=== PATIENT | female | born 1930 | race Caucasian/White ===

== ENCOUNTER 2016-03-19 08:45 | Outpatient (CLI) | payer MEDICARE | END 2016-03-19 08:46 | LOC: NAVSJIPCSP 08:45 | PROVIDERS: ATTEND Internal Medicine | DX: E78.5 Hyperlipidemia, unspecified (principal); Z79.899 Other long term (current) drug therapy | CPT/HCPCS: 36415; 80061 ==

== ENCOUNTER 2016-06-16 07:57 | Outpatient (CLI) | payer MEDICARE ==
[2016-06-16 12:59] LABS: Cardiac Risk 2.8 (Less than 4.5)
== END 2016-06-16 07:58 | disposition home or self-care (01) ==
LOC: NAVSJIPCSP 07:57
PROVIDERS: ATTEND Internal Medicine
DX: E78.5 Hyperlipidemia, unspecified (principal); Z79.899 Other long term (current) drug therapy
CPT/HCPCS: 36415; 80061

== ENCOUNTER 2016-09-24 08:44 | Outpatient (CLI) | payer MEDICARE ==
[2016-09-24 12:59] LABS: Cardiac Risk 2.9 (Less than 4.5)
== END 2016-09-24 08:45 | disposition home or self-care (01) ==
LOC: NAVSJIPCSP 08:44
PROVIDERS: ATTEND Internal Medicine
DX: E78.5 Hyperlipidemia, unspecified (principal)
CPT/HCPCS: 36415; 80061

== ENCOUNTER 2017-06-02 06:11 | Emergency (ER) | payer MEDICARE | END 2017-06-02 06:55 | disposition home or self-care (01) | LOC: NAV ERS 06:11 | DX: J06.9 Acute upper respiratory infection, unspecified (principal); I10 Essential (primary) hypertension; E78.5 Hyperlipidemia, unspecified | CPT/HCPCS: 96372 ==

== ENCOUNTER 2017-11-08 15:56 | Outpatient (CLI) | payer MEDICARE ==
--- NOTE | 2017-11-08 17:55 | RAD ---
RIGHT KNEE FOUR VIEWS: INDICATIONS: Right knee pain. FINDINGS: There is a nondisplaced stress fracture involving the lateral cortex of the distal right femoral shaf t. There is moderate degenerative arthrosis of the right knee. There is no definite joint capsular distention. IMPRESSION: 1. Nondisplaced stress fracture of the right distal lateral femoral shaft. 2. Moderated degenerative arthrosis of the right knee. CODE T POS: [facility]
== END 2017-11-08 15:57 | disposition home or self-care (01) ==
LOC: NAV RAD 15:56
PROVIDERS: ATTEND Internal Medicine
DX: M17.11 Unilateral primary osteoarthritis, right knee (principal); S72.301A Unspecified fracture of shaft of right femur, initial encounter for closed fracture

== ENCOUNTER 2018-09-09 18:41 | Emergency (ER) | payer MEDICARE ==
[~2018-09-09 18:41] MED LIST: Iopamidol 370 76% 100 ML VIAL ONE
[2018-09-09] MEDS ORDERED: Fentanyl 100 MCG/2 ML VIAL ONE ×2 (19:12→20:47)
[2018-09-09] MEDS ORDERED: Ondansetron PF 4 MG/2 ML Vial ONE (19:12)
[2018-09-09] MEDS ORDERED: Ondansetron PF 4 MG/2 ML Vial SLOW IVP SCH (19:15)
[2018-09-09] MEDS ORDERED: Fentanyl 100 MCG/2 ML VIAL SLOW IVP SCH (19:15)
[2018-09-09 19:34] LABS: #Lymphocytes 1.8 thou/uL (1.20-3.40); #Monocytes 0.9 thou/uL (0.11-0.59); %Basophils 0.3 % (0.0-1.0); %Eosinophils 0.1 % (0.0-10.0); %Lymphocytes 15.6 % (21.0-51.0); %Monocytes 7.6 % (0.0-10.0); %Neutrophils 76.4 % (42.0-75.0); Hemoglobin 12.3 g/dL (12.0-16.0); Mean Corpuscular HGB CONC 33.2 g/dL (32.0-36.0); Mean Corpuscular Hemoglobin 29.7 pg (27.0-31.0); Mean Corpuscular Volume 89.5 fL (78.0-98.0); Mean Platelet Volume 8.5 fL (7.4-10.4); Platelet Count 225 thou/uL (130-400); RBC Distribution Width 12.1 % (11.5-14.5); Red Blood Cell (RBC) Count 4.13 mill/uL (4.20-5.40); White Blood Cell (WBC) Count 11.7 thou/uL (4.8-10.8)
[2018-09-09 19:51] LABS: ALT (SGPT) 20 U/L (8-55); AST (SGOT) 26 U/L (5-34); Albumin 4.3 g/dL (3.4-4.8); Alkaline Phosphatase 61 U/L (40-150); Anion Gap 17 mmol/L (10-20); BUN (Urea Nitrogen) 19 mg/dL (9.8-20.1); Bilirubin, Total 0.9 mg/dL (0.2-1.2); CK (CPK) 79 U/L (29-168); Calc. Creatinine Clearance 0 mL/min (70-130); Calcium 10.5 mg/dL (7.8-10.44); Carbon Dioxide 24 mmol/L (23-31); Chloride 101 mmol/L (98-107); Estimated GFR-MDRD 62; Globulin 2.8 g/dL (2.4-3.5); Glucose 113 mg/dL (83-110); Lipase 18 U/L (8-78); Potassium 3.4 mmol/L (3.5-5.1); Protein, Total 7.1 g/dL (6.0-8.3); Sodium 139 mmol/L (136-145)
[2018-09-09] MEDS ORDERED: Metoprolol Tartrate 5 MG/5 ML VIAL ONE (19:59)
[2018-09-09] MEDS ORDERED: hydrALAZINE 20 MG/ML VIAL ONE (19:59)
--- NOTE | 2018-09-09 20:07 | RAD ---
Lumbar spine 3 views HISTORY: Fall. Back injury. FINDINGS: There are 5 lumbar type vertebrae. Pedicles are intact. Minimal degenerative spondylolisthe sis at the L1-2 and L5-S1 levels. Prominent osteophytosis throughout the vertebral bodies and facets. Prominent leftward convex rotatory scoliotic curvature on the frontal view. Minimal chronic appearing superior and inferior endplate depression at L2. Compression of the T11 inferior endplate by approximately 40%. No retropulsion. Prominent calcification over the arterial structures. IMPRESSION: Partial compression of the T11 vertebral body. Age indeterminant. No retropulsion. Minimal chronic appearing compression at L2. Atherosclerosis.
--- NOTE | 2018-09-09 20:12 | RAD ---
PA VIEW OF THE CHEST WITH THREE VIEWS OF THE RIGHT CHEST WALL 09/09/18 INDICATION: History of fall with right sided rib pain. FINDINGS: The lungs are hyperexpanded but clear. There is moderate cardiomegaly with a mild pulmonary vascular congestion. No consolidation, pleural effusion, or pneumothorax is evident. There is diffuse osteopen ia. There is mild degenerative arthrosis in both shoulders, left greater than right. No displaced right sided rib fracture is evident. There is scattered vascular calcifications within t he visualized abdomen. IMPRESSION: 1. No definite displaced right sided rib fracture. 2. Chronic findings as above. POS: [facility]
[2018-09-09 20:55] LABS: Bilirubin Negative (Negative); Blood, Urine Negative (Negative); Clarity Clear (Clear); Glucose, Urine (Dipstick) Negative (Negative); Leukocyte Trace (Negative); Nitrite Negative (Negative); Protein, Urine (Dipstick) > or equal to 300 mg/dL (Neg-Trace)
[2018-09-09 20:58] LABS: Bacteria/HPF Rare-Few HPF (None Seen); RBC/HPF None Seen HPF (0-3); Squamous Epithelial 0-3 HPF (0-3)
--- NOTE | 2018-09-09 21:40 | CT ---
CT abdomen and pelvis with IV contrast HISTORY: Abdomen pain. FINDINGS: Mild atelectasis and scarring at the lung bases. Prominent leftward convex rotatory scoliot ic curvature of the lumbar spine. Prominent calcification throughout the arterial structures. Cysts arise from the cortex of the kidney. Largest projects medially from the inferior pole of the left kid lorena and measures up to 8.4 cm. No evidence of bowel obstruction. Diverticula arise from the colon without adjacent inflammation. Urinary bladder is incompletely distended. Extensive dystrophic inject ion granulomata throughout the gluteal tissues. IMPRESSION: Atherosclerosis. Chronic-type findings as detailed above. No acute abnormalities are demonstrated.
[2018-09-09] MEDS ORDERED: cefTRIAXone\\ROCEPHIN 1 GM VIAL ONE (22:24)
== END 2018-09-09 22:42 | disposition short-term general hospital (02) ==
LOC: NAV ERS 18:41
DX: S23.41XA Sprain of ribs, initial encounter (principal); N39.0 Urinary tract infection, site not specified; I10 Essential (primary) hypertension; E78.5 Hyperlipidemia, unspecified; Z79.899 Other long term (current) drug therapy; W18.2XXA Fall in (into) shower or empty bathtub, initial encounter
CPT/HCPCS: 72100; 74177; 80053; 81003; 81015; 82550; 83690; 84484; 85025; 93005; 94760; 96374; 96375; 96376; J0360; J0696; J2405; J3010; Q9967

== ENCOUNTER 2018-09-19 15:27 | Inpatient (IN) | payer MEDICARE ==
[2018-09-19] MEDS: Acetaminophen 325 MG TAB PO SCH ×2 (21:15→21:19)
[2018-09-19] MEDS: Montelukast Sodium 10 mg Tablet PO SCH (21:15)
[2018-09-19] MEDS: Gabapentin 300 MG CAP PO SCH (21:16)
[2018-09-19] MEDS: HYDROcodone/Acetaminophen 5/325 mg Tablet PO PRN (21:16)
[2018-09-19] MEDS: Apixaban 2.5 MG TAB PO SCH (21:17)
[2018-09-19] MEDS: Digoxin 0.125 MG TAB PO SCH (21:18)
[2018-09-19] MEDS ORDERED: cloNIDine 0.1 MG TAB PO SCH (23:59)
[2018-09-20 05:59] LABS: #Basophils 0.1 thou/uL (0.0-0.2); #Eosinphils 0.4 thou/uL (0.0-0.7); #Lymphocytes 2.4 thou/uL (1.20-3.40); #Monocytes 0.9 thou/uL (0.11-0.59); #Neutrophils 5.8 thou/uL (1.40-6.50); %Basophils 1.2 % (0.0-1.0); %Eosinophils 4.3 % (0.0-10.0); %Monocytes 9.1 % (0.0-10.0); %Neutrophils 60.4 % (42.0-75.0); Hemoglobin 10.9 g/dL (12.0-16.0); Mean Corpuscular HGB CONC 32.1 g/dL (32.0-36.0); Mean Corpuscular Hemoglobin 29.4 pg (27.0-31.0); Mean Corpuscular Volume 91.7 fL (78.0-98.0); Mean Platelet Volume 7.7 fL (7.4-10.4); Platelet Count 309 thou/uL (130-400); RBC Distribution Width 12.7 % (11.5-14.5); Red Blood Cell (RBC) Count 3.71 mill/uL (4.20-5.40); White Blood Cell (WBC) Count 9.5 thou/uL (4.8-10.8)
[2018-09-20 06:10] LABS: Anion Gap 13 mmol/L (10-20); BUN (Urea Nitrogen) 19 mg/dL (9.8-20.1); Calc. Creatinine Clearance 46 mL/min (70-130); Calcium 9.8 mg/dL (7.8-10.44); Carbon Dioxide 28 mmol/L (23-31); Chloride 103 mmol/L (98-107); Estimated GFR-MDRD 73; Glucose 94 mg/dL (83-110); Potassium 3.8 mmol/L (3.5-5.1); Sodium 140 mmol/L (136-145)
[2018-09-20] MEDS: hydrALAZINE 25 MG TAB PO SCH ×2 (08:07→20:09)
[2018-09-20] MEDS: Saccharomyces boulardii 250 MG CAP PO SCH (08:08)
[2018-09-20] MEDS: Multivitamin W/ Minerals 1 TAB PO SCH (08:08)
[2018-09-20] MEDS: Losartan 25 MG TAB PO SCH (08:08)
[2018-09-20] MEDS: cloNIDine 0.1 MG TAB PO SCH ×3 (08:09→20:08)
[2018-09-20] MEDS: Gabapentin 300 MG CAP PO SCH ×3 (08:09→20:08)
[2018-09-20] MEDS: Atorvastatin Calcium 40 MG TAB PO SCH (08:10)
[2018-09-20] MEDS: Amlodipine 10 MG TAB PO SCH (08:10)
[2018-09-20] MEDS: Apixaban 2.5 MG TAB PO SCH ×2 (08:10→20:07)
[2018-09-20] MEDS: HYDROcodone/Acetaminophen 5/325 mg Tablet PO PRN ×2 (08:17→14:03)
[2018-09-20] MEDS: Acetaminophen 325 MG TAB PO SCH ×3 (08:18→20:07)
[2018-09-20] MEDS: Polyethylene Glycol 3350 17 GM Packet PO SCH (08:18)
--- NOTE | 2018-09-20 14:38 | HP ---
PRINCIPAL DIAGNOSES: Mesenteric ischemia and severe renal artery stenosis along with deconditioning requiring therapy. BRIEF HISTORY: This is a very pleasant 87-year-old female, who is well known to me, developed acute abdominal pain, requiring morphine and Dilaudid, so she was transferred up to [place], where workup showed a mesenteric ischemia, and CT angiogram showed some stenosis in the superior mesenteric artery, which is [id number], as well as minimal celiac artery narrowing as well. She was also noted to have bilateral severe renal artery stenosis as well as a T11 compression fracture. She was switched from heparin infusion to Eliquis. She has been advised to wear a TLSO brace. She was not recommended any intervention for her mesenteric artery stenosis. Her diet has been slowly advanced, and she was advised to come here for therapy. Currently, the patient is sitting up in her wheelchair and denies any concerns. She is still on oxygen. She apparently walked all the way around the nurse's station this morning. The pain is controlled. No fever or chills. No family at bedside. PAST MEDICAL HISTORY: 1. Hypertension. 2. Dyslipidemia. 3. Atrial fibrillation, has always refused anticoagulation, but currently has agreed to it. 4. Chronic kidney disease, stage 2. 5. Osteoarthritis. 6. Recent T11 compression fracture. 7. 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 PAST SURGICAL HISTORY: 1. Appendectomy. 2. Hysterectomy. FAMILY HISTORY: Noncontributory. PSYCHOSOCIAL HISTORY: No alcohol, tobacco, or recreational drug abuse. Fairly active and independent and gainfully employed. ALLERGIES: NO KNOWN DRUG ALLERGIES. MEDICATIONS: Discharge medications, she has been transferred here on the following medications: 1. Eliquis 2.5 mg b.i.d. 2. Vitamin D3 1000 international units at bedtime. 3. Clonidine 0.1 mg t.i.d. 4. Digoxin 250 mcg daily. 5. Hydralazine 50 mg b.i.d. 6. Losartan 100 mg daily. 7. Singulair 10 mg daily. 8. Simvastatin 80 mg at bedtime. 9. Amlodipine 10 mg daily. 10. Gabapentin 300 mg t.i.d. 11. [place] 5/325 q.6 p.r.n. 12. Potassium chloride 20 mEq daily for 5 more days. 13. Florastor 250 mg daily. REVIEW OF SYSTEMS: CARDIOVASCULAR SYSTEM: Denies any chest pain, shortness of breath, palpitations, PND, orthopnea, or pedal edema. RESPIRATORY SYSTEM: Denies any chronic cough, expectoration, or pleuritic type chest pain. GASTROINTESTINAL SYSTEM: Denies any nausea, vomiting, diarrhea, constipation, hematemesis, melena, or hematochezia. Her abdominal pain is much improved. GENITOURINARY SYSTEM: Denies any frequency, urgency, dysuria, or hematuria. CENTRAL NERVOUS SYSTEM: Generalized weakness. SHEENT: No difficulty with speech, vision, hearing, or swallowing. SKIN: Denies any rash. PHYSICAL EXAMINATION: GENERAL: A very pleasant 87-year-old female, who is well known to me, who is resting comfortably in her wheelchair and denies any concerns. No family at bedside. She responds appropriately to questions. VITAL SIGNS: She is afebrile. Heart rate 71, respirations 20, oxygen saturation 95% on 2 L, and blood pressure 180/77. HEENT: Normocephalic and atraumatic. Pupils equally reactive to light and accommodation. NECK: No JVD, thyromegaly, cervical lymphadenopathy, or throat exudates. No carotid bruits. CARDIOVASCULAR SYSTEM: S1 and S2 plus. Irregularly irregular. RESPIRATORY: Normal vesicular breath sounds heard in all lung bruno. ABDOMEN: Soft and nontender. Bowel sounds heard in all quadrants. No organomegaly. No palpable mass. No CV angle tenderness. EXTREMITIES: Without cyanosis or clubbing. Peripheral pulses are palpable. Trace edema. CENTRAL NERVOUS SYSTEM: Awake. AAO x3. Cranial nerves 2 through 12 intact. Generalized weakness. LABORATORY VALUES: Show a white count of 9.5, H and H are 10.9 and 34. Sodium 140, potassium 3.8, BUN and creatinine are 19 and 0.75. IMPRESSION: 1. Mesenteric ischemia. 2. Bilateral renal artery stenosis. 3. Atrial fibrillation. 4. Hypertension. 5. Dyslipidemia. 6. Osteoarthritis. 7. Resolving hypokalemia. 8. Acute respiratory failure with hypoxemia. PLAN: 1. Titrate oxygen as long as room air saturation greater than 92%. 2. Continue discharge medications. 3. Stop potassium supplement. 4. Physical therapy and occupational therapy evaluation and treat. 5. TLSO brace and spinal precaution. 6. Heart healthy diet. 7. DVT prophylaxis - the patient is on Eliquis. 8. Stress ulcer prophylaxis. 9. Decubitus precautions. 10. Discussed with the patient in detail. All questions answered. Job ID: [id number]
[2018-09-20] MEDS: Digoxin 0.125 MG TAB PO SCH (20:08)
[2018-09-20] MEDS: Montelukast Sodium 10 mg Tablet PO SCH (20:09)
[2018-09-21] MEDS: Polyethylene Glycol 3350 17 GM Packet PO SCH (08:19)
[2018-09-21] MEDS: hydrALAZINE 25 MG TAB PO SCH ×2 (08:19→20:39)
[2018-09-21] MEDS: Saccharomyces boulardii 250 MG CAP PO SCH (08:19)
[2018-09-21] MEDS: cloNIDine 0.1 MG TAB PO SCH ×3 (08:20→20:40)
[2018-09-21] MEDS: Amlodipine 10 MG TAB PO SCH (08:20)
[2018-09-21] MEDS: Gabapentin 300 MG CAP PO SCH ×3 (08:20→20:39)
[2018-09-21] MEDS: Multivitamin W/ Minerals 1 TAB PO SCH (08:20)
[2018-09-21] MEDS: HYDROcodone/Acetaminophen 5/325 mg Tablet PO PRN ×2 (08:21→13:54)
[2018-09-21] MEDS: Acetaminophen 325 MG TAB PO SCH ×3 (08:21→20:39)
[2018-09-21] MEDS: Apixaban 2.5 MG TAB PO SCH ×2 (08:21→20:40)
[2018-09-21] MEDS: Atorvastatin Calcium 40 MG TAB PO SCH (08:25)
[2018-09-21] MEDS: Losartan 25 MG TAB PO SCH (08:27)
--- NOTE | 2018-09-21 12:38 | PRG ---
DATE OF SERVICE: 09/21/2018 SUBJECTIVE: Ms. Cabrera is doing well. She is up in her chair and drinking her Ensure. She apparently walked twice around the nurse's station this morning. She is still on oxygen. Discussed with nursing and I advised them to try to titrate her off the oxygen. Main concern for her is how she is going to get her TLSO brace off and on at home, and I am going to talk with her family members and see if they can be trained. OBJECTIVE: VITAL SIGNS: She is afebrile. Heart rate is 68, respirations 18, and blood pressure 148/68 after blood pressure medicines. CARDIOVASCULAR SYSTEM: S1 and S2 plus irregularly irregular. RESPIRATORY SYSTEM: Normal vesicular breath sounds. ABDOMEN: Soft, nontender. Bowel sounds heard in all quadrants. EXTREMITIES: Without cyanosis or clubbing. CENTRAL NERVOUS SYSTEM: Generalized weakness. AAO x3. IMPRESSION: 1. T11 compression fracture. 2. Atrial fibrillation, now on anticoagulation. 3. Mesenteric ischemia. 4. Bilateral renal artery stenosis. 5. Hypertension. 6. Osteoarthritis. 7. Dyslipidemia. PLAN: 1. Continue current medications. 2. Nutritional support. 3. Titrate oxygen. 4. DVT and stress ulcer prophylaxes. She is started on Eliquis. 5. Decubitus precautions. 6. Spinal precaution. 7. Physical therapy. 8. Discussed with family about her brace, placing it on and off. Job ID: [id number]
[2018-09-21] MEDS: Digoxin 0.125 MG TAB PO SCH (20:40)
[2018-09-21] MEDS: Montelukast Sodium 10 mg Tablet PO SCH (20:40)
[2018-09-22] MEDS: HYDROcodone/Acetaminophen 5/325 mg Tablet PO PRN ×3 (05:47→21:39)
[2018-09-22] MEDS: Polyethylene Glycol 3350 17 GM Packet PO SCH (08:26)
[2018-09-22] MEDS: Multivitamin W/ Minerals 1 TAB PO SCH (08:27)
[2018-09-22] MEDS: Amlodipine 10 MG TAB PO SCH (08:27)
[2018-09-22] MEDS: Saccharomyces boulardii 250 MG CAP PO SCH (08:27)
[2018-09-22] MEDS: Atorvastatin Calcium 40 MG TAB PO SCH (08:27)
[2018-09-22] MEDS: Gabapentin 300 MG CAP PO SCH ×3 (08:27→21:41)
[2018-09-22] MEDS: cloNIDine 0.1 MG TAB PO SCH ×3 (08:28→21:38)
[2018-09-22] MEDS: Acetaminophen 325 MG TAB PO SCH ×3 (08:28→21:40)
[2018-09-22] MEDS: Losartan 25 MG TAB PO SCH (08:28)
[2018-09-22] MEDS: hydrALAZINE 25 MG TAB PO SCH ×3 (08:28→21:39)
[2018-09-22] MEDS: Apixaban 2.5 MG TAB PO SCH ×2 (08:28→21:38)
--- NOTE | 2018-09-22 14:07 | PRG ---
DATE OF SERVICE: 09/22/2018 SUBJECTIVE: Ms. Cabrera has been moved to 143. She is resting comfortably. Apparently, nursing was unable to discontinue her oxygen as her saturation dropping to 88 on room air. Reinforced complaints with incentive spirometry. The patient is doing well, otherwise is very happy. She got some falk for breakfast. Pain is controlled. OBJECTIVE: VITAL SIGNS: She is afebrile. Heart rate 63, respirations 18, oxygen saturation 93% on 0.5 L, and blood pressure 177/70. CARDIOVASCULAR SYSTEM: S1 and S2 plus. RESPIRATORY SYSTEM: Normal vesicular breath sounds. ABDOMEN: Soft, nontender. Bowel sounds heard in all quadrants. EXTREMITIES: Without cyanosis or clubbing. CENTRAL NERVOUS SYSTEM: Awake and responsive. Cranial nerves 2 through 12 intact. Generalized weakness. IMPRESSION: 1. T11 compression fracture. 2. Mesenteric artery ischemia. 3. Bilaterally renal artery stenosis. 4. Atrial fibrillation. 5. Hypertension. 6. Dyslipidemia. 7. Osteoarthritis. PLAN: 1. Continue current medications. 2. Nutritional support. 3. DVT and stress ulcer prophylaxis. 4. Decubitus precautions. 5. TLSO brace. 6. Routine laboratory values. 7. Physical therapy. 8. Increase hydralazine to 100 mg t.i.d. 9. Discussed with the patient and nursing in detail, and all questions answered. Job ID: [id number]
[2018-09-22] MEDS: Montelukast Sodium 10 mg Tablet PO SCH (21:39)
[2018-09-22] MEDS: Digoxin 0.125 MG TAB PO SCH (21:41)
[2018-09-23] MEDS: HYDROcodone/Acetaminophen 5/325 mg Tablet PO PRN ×4 (05:31→20:16)
[2018-09-23] MEDS: Gabapentin 300 MG CAP PO SCH ×3 (09:24→20:15)
[2018-09-23] MEDS: hydrALAZINE 25 MG TAB PO SCH ×3 (09:25→20:16)
[2018-09-23] MEDS: Losartan 25 MG TAB PO SCH (09:25)
[2018-09-23] MEDS: Apixaban 2.5 MG TAB PO SCH ×2 (09:26→20:14)
[2018-09-23] MEDS: Amlodipine 10 MG TAB PO SCH (09:26)
[2018-09-23] MEDS: cloNIDine 0.1 MG TAB PO SCH ×3 (09:26→20:14)
[2018-09-23] MEDS: Multivitamin W/ Minerals 1 TAB PO SCH (09:26)
[2018-09-23] MEDS: Saccharomyces boulardii 250 MG CAP PO SCH (09:26)
[2018-09-23] MEDS: Acetaminophen 325 MG TAB PO SCH ×3 (09:26→20:14)
[2018-09-23] MEDS: Atorvastatin Calcium 40 MG TAB PO SCH (09:26)
[2018-09-23] MEDS: Polyethylene Glycol 3350 17 GM Packet PO SCH (09:27)
[2018-09-23] MEDS ORDERED: Lidocaine 5% Patch TD SCH (10:00)
--- NOTE | 2018-09-23 10:14 | PRG ---
DATE OF SERVICE: 09/23/2018 SUBJECTIVE: Ms. Cabrera is up in bed, eating breakfast. She is complaining of pain in her back. She states it is worse over time she coughs. Plan is to try a Lidoderm patch. Discussed with nursing. No other concerns or questions. OBJECTIVE: VITAL SIGNS: She is afebrile, heart rate is 65, respirations are 18, oxygen saturation 92% on 1.5 L, and blood pressure 124/58. CARDIOVASCULAR SYSTEM: S1 and S2 plus. Irregularly regular. RESPIRATORY SYSTEM: Normal vesicular breath sounds with decreased air entry at the bases. ABDOMEN: Soft, nontender. Bowel sounds heard in all quadrants. EXTREMITIES: Without cyanosis or clubbing. CENTRAL NERVOUS SYSTEM: Awake and responsive. Cranial nerves 2 through 12 intact. Generalized weakness. IMPRESSION: 1. Mesenteric ischemia, much improved and now asymptomatic. 2. T11 compression fracture causing significant pain. 3. Hypertension, better controlled. 4. Dyslipidemia. 5. Atrial fibrillation. 6. Renal artery stenosis as well as mesenteric artery stenosis. 7. Deconditioning. PLAN: 1. Lidoderm patch q.12 hours. 2. Spinal precautions and TLSO brace. 3. Continue current medications. 4. Heart healthy diet. 5. Monitor heart rate and rhythm. 6. Reinforce complaints with incentive spirometry. 7. Monitor respiratory status. 8. Routine laboratory values. 9. Physical therapy. 10. Discussed with the patient and nursing in detail. All questions answered. Job ID: [id number]
[2018-09-23] MEDS: Digoxin 0.125 MG TAB PO SCH (20:15)
[2018-09-23] MEDS: Lidocaine Patch Removal 1 EACH TOP SCH (20:16)
[2018-09-23] MEDS: Montelukast Sodium 10 mg Tablet PO SCH (20:16)
[2018-09-24] MEDS: HYDROcodone/Acetaminophen 5/325 mg Tablet PO PRN ×3 (04:08→21:17)
[2018-09-24 05:44] LABS: #Basophils 0.1 thou/uL (0.0-0.2); #Eosinphils 0.4 thou/uL (0.0-0.7); #Lymphocytes 2.3 thou/uL (1.20-3.40); #Monocytes 0.8 thou/uL (0.11-0.59); #Neutrophils 5.9 thou/uL (1.40-6.50); %Basophils 1.1 % (0.0-1.0); %Eosinophils 4.1 % (0.0-10.0); %Lymphocytes 24.2 % (21.0-51.0); %Monocytes 7.9 % (0.0-10.0); %Neutrophils 62.6 % (42.0-75.0); Hemoglobin 10.2 g/dL (12.0-16.0); Mean Corpuscular HGB CONC 31.5 g/dL (32.0-36.0); Mean Corpuscular Hemoglobin 29.1 pg (27.0-31.0); Mean Corpuscular Volume 92.4 fL (78.0-98.0); Mean Platelet Volume 7.6 fL (7.4-10.4); Platelet Count 345 thou/uL (130-400); RBC Distribution Width 12.7 % (11.5-14.5); Red Blood Cell (RBC) Count 3.51 mill/uL (4.20-5.40); White Blood Cell (WBC) Count 9.4 thou/uL (4.8-10.8)
[2018-09-24 05:58] LABS: Anion Gap 13 mmol/L (10-20); BUN (Urea Nitrogen) 31 mg/dL (9.8-20.1); Calc. Creatinine Clearance 39 mL/min (70-130); Calcium 10.1 mg/dL (7.8-10.44); Carbon Dioxide 28 mmol/L (23-31); Chloride 104 mmol/L (98-107); Estimated GFR-MDRD 59; Glucose 92 mg/dL (83-110); Potassium 4.4 mmol/L (3.5-5.1); Sodium 141 mmol/L (136-145)
[2018-09-24] MEDS ORDERED: Lidocaine 5% Patch TD SCH (09:00)
[2018-09-24] MEDS: Multivitamin W/ Minerals 1 TAB PO SCH (09:59)
[2018-09-24] MEDS: Losartan 25 MG TAB PO SCH (09:59)
[2018-09-24] MEDS: Atorvastatin Calcium 40 MG TAB PO SCH (09:59)
[2018-09-24] MEDS: Polyethylene Glycol 3350 17 GM Packet PO SCH (09:59)
[2018-09-24] MEDS: Saccharomyces boulardii 250 MG CAP PO SCH (09:59)
[2018-09-24] MEDS: Gabapentin 300 MG CAP PO SCH ×3 (09:59→21:18)
[2018-09-24] MEDS: cloNIDine 0.1 MG TAB PO SCH ×3 (09:59→21:18)
[2018-09-24] MEDS: Apixaban 2.5 MG TAB PO SCH ×2 (09:59→21:20)
[2018-09-24] MEDS: Amlodipine 10 MG TAB PO SCH (09:59)
[2018-09-24] MEDS: hydrALAZINE 25 MG TAB PO SCH ×3 (09:59→21:16)
[2018-09-24] MEDS: Acetaminophen 325 MG TAB PO SCH ×3 (10:00→21:20)
--- NOTE | 2018-09-24 16:15 | PRG ---
DATE OF SERVICE: 09/24/2018 SUBJECTIVE: Ms. Cabrera is doing well. Denies any complaints except for pain. Lidoderm patch is helping, but she is noticing the pain below that. I advised nursing to add two patches daily. She is staying compliant with her incentive spirometry. Tolerating her p.o. intake. No further abdominal pain. OBJECTIVE: VITAL SIGNS: She is afebrile. Heart rate 69, respirations 18, oxygen saturation 95%, blood pressure 144/64. CARDIOVASCULAR SYSTEM: S1 and S2 plus. RESPIRATORY SYSTEM: Normal vesicular breath sounds. ABDOMEN: Soft, nontender. Bowel sounds heard in all quadrants. EXTREMITIES: Without cyanosis or clubbing. Peripheral pulses are palpable. CENTRAL NERVOUS SYSTEM: A and O x3. Cranial nerves 2 through 12 are intact. Generalized weakness. LABORATORY VALUES: Show white count of 9.4, hemoglobin and hematocrit are 10.2 and 32.4. Sodium 141, potassium 4.4, BUN and creatinine are 31 and 0.90. IMPRESSION: 1. T11 compression fracture. 2. Mesenteric ischemia. 3. Hypertension. 4. Atrial fibrillation. 5. Osteoarthritis. 6. Dyslipidemia. 7. Acute hypoxemic respiratory failure. PLAN: 1. Continue current medications. 2. Heart healthy diet. 3. Monitor blood pressure and adjust medications as needed. 4. Titrate oxygen. 5. DVT and stress ulcer prophylaxis. She is on Eliquis. 6. Decubitus precaution. 7. Incentive spirometry. 8. Discussed with the patient in detail. All questions answered. Job ID: [id number]
[2018-09-24] MEDS ORDERED: Lidocaine Patch Removal 1 EACH TOP SCH (21:00)
[2018-09-24] MEDS: Digoxin 0.125 MG TAB PO SCH (21:18)
[2018-09-24] MEDS: Montelukast Sodium 10 mg Tablet PO SCH (21:21)
[2018-09-24] MEDS: Lidocaine Patch Removal 1 EACH TOP SCH (21:22)
[2018-09-25] MEDS: Saccharomyces boulardii 250 MG CAP PO SCH (09:12)
[2018-09-25] MEDS: Acetaminophen 325 MG TAB PO SCH ×3 (09:12→21:45)
[2018-09-25] MEDS: Lidocaine 5% Patch TD SCH (09:12)
[2018-09-25] MEDS: Multivitamin W/ Minerals 1 TAB PO SCH (09:12)
[2018-09-25] MEDS: Losartan 25 MG TAB PO SCH (09:12)
[2018-09-25] MEDS: Atorvastatin Calcium 40 MG TAB PO SCH (09:12)
[2018-09-25] MEDS: hydrALAZINE 25 MG TAB PO SCH ×3 (09:13→20:42)
[2018-09-25] MEDS: cloNIDine 0.1 MG TAB PO SCH ×3 (09:13→20:42)
[2018-09-25] MEDS: Gabapentin 300 MG CAP PO SCH ×3 (09:13→20:42)
[2018-09-25] MEDS: Apixaban 2.5 MG TAB PO SCH ×2 (09:13→20:42)
[2018-09-25] MEDS: Amlodipine 10 MG TAB PO SCH (09:13)
[2018-09-25] MEDS: Polyethylene Glycol 3350 17 GM Packet PO SCH (09:13)
[2018-09-25] MEDS: HYDROcodone/Acetaminophen 5/325 mg Tablet PO PRN ×2 (11:02→20:43)
--- NOTE | 2018-09-25 16:11 | PRG ---
DATE OF SERVICE: 09/25/2018 SUBJECTIVE: Ms. Cabrera is doing well. She states that the second Lidoderm patch is helping. She states that she does not like her multivitamin and wants it discontinued or changed. Unfortunately, pharmacy does not have any other type of multivitamin, so we will go out and stop it. She is doing well otherwise and denies any questions or concerns. OBJECTIVE: VITAL SIGNS: She is afebrile, heart rate is 65, respirations 18, blood pressure 144/64, and oxygen saturation is 94% on 1 L. CARDIOVASCULAR SYSTEM: S1 and S2 plus. RESPIRATORY SYSTEM: Normal vesicular breath sounds. ABDOMEN: Soft and nontender. Bowel sounds heard in all quadrants. EXTREMITIES: Without cyanosis or clubbing. CENTRAL NERVOUS SYSTEM: Awake and responsive. Generalized weakness. IMPRESSION: 1. T11 compression fracture. 2. Resolved mesenteric ischemia. 3. Severe mesenteric artery stenosis as well as bilateral renal artery stenosis. 4. Hypertension. 5. Dyslipidemia. 6. Osteoarthritis. PLAN: 1. Discontinue multivitamin. 2. Continue current medications. 3. Spinal precautions. 4. Monitor heart rate and rhythm. 5. Heart-healthy diet. 6. Physical therapy. 7. Routine laboratory values. 8. Discussed with the patient and nursing in detail. All questions answered. Job ID: [id number]
[2018-09-25] MEDS: Digoxin 0.125 MG TAB PO SCH (20:42)
[2018-09-25] MEDS: Montelukast Sodium 10 mg Tablet PO SCH (21:45)
[2018-09-25] MEDS: Lidocaine Patch Removal 1 EACH TOP SCH (21:45)
[2018-09-26] MEDS: HYDROcodone/Acetaminophen 5/325 mg Tablet PO PRN ×3 (07:24→20:30)
[2018-09-26] MEDS: Polyethylene Glycol 3350 17 GM Packet PO SCH (09:09)
[2018-09-26] MEDS: Saccharomyces boulardii 250 MG CAP PO SCH (09:10)
[2018-09-26] MEDS: Atorvastatin Calcium 40 MG TAB PO SCH (09:10)
[2018-09-26] MEDS: Gabapentin 300 MG CAP PO SCH ×3 (09:12→20:28)
[2018-09-26] MEDS: Amlodipine 10 MG TAB PO SCH (09:14)
[2018-09-26] MEDS: Apixaban 2.5 MG TAB PO SCH ×2 (09:16→20:29)
[2018-09-26] MEDS: cloNIDine 0.1 MG TAB PO SCH ×3 (09:16→20:28)
[2018-09-26] MEDS: Losartan 25 MG TAB PO SCH (09:17)
[2018-09-26] MEDS: Acetaminophen 325 MG TAB PO SCH ×3 (09:19→20:30)
[2018-09-26] MEDS: Lidocaine 5% Patch TD SCH ×3 (09:22→09:43)
[2018-09-26] MEDS: hydrALAZINE 25 MG TAB PO SCH ×3 (11:09→20:28)
--- NOTE | 2018-09-26 18:25 | PRG ---
DATE OF SERVICE: 09/26/2018 SUBJECTIVE: Ms. Cabrera is resting in bed. She just finished her lunch. Her sister is in the room. Her pain is improved with 2 patches. She still has pain with movement. No other concerns or questions. She is doing better since her multivitamin was stopped. She is not having any . OBJECTIVE: VITAL SIGNS: She is afebrile, heart rate 65, respirations 18, oxygen saturation 95%, and blood pressure 134/66. CARDIOVASCULAR SYSTEM: S1 and S2 plus. RESPIRATORY SYSTEM: Normal vesicular breath sounds. ABDOMEN: Soft, nontender. Bowel sounds heard in all quadrants. EXTREMITIES: Without cyanosis or clubbing. CENTRAL NERVOUS SYSTEM: Awake and responsive. Cranial nerves 2 through 12 intact. Generalized weakness. IMPRESSION: 1. T11 compression fracture. 2. Mesenteric ischemia, much improved. 3. 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 4. Atrial fibrillation. 5. Hypertension. 6. Dyslipidemia. 7. Osteoarthritis. 8. Anemia likely due to chronic disease. 9. Acute hypoxemic respiratory failure. PLAN: 1. Continue current medications. 2. Heart healthy diet. 3. Spinal precautions and TLSO brace. 4. Monitor heart rate and rhythm. 5. Physical therapy. 6. Titrate oxygen. 7. Routine laboratory values. 8. Discussed with the patient and sister in detail. All questions answered. Job ID: [id number]
[2018-09-26] MEDS: Montelukast Sodium 10 mg Tablet PO SCH (20:28)
[2018-09-26] MEDS: Digoxin 0.125 MG TAB PO SCH (20:28)
[2018-09-26] MEDS: Lidocaine Patch Removal 1 EACH TOP SCH (23:31)
[2018-09-27] MEDS: HYDROcodone/Acetaminophen 5/325 mg Tablet PO PRN ×3 (08:52→21:38)
[2018-09-27] MEDS: Atorvastatin Calcium 40 MG TAB PO SCH (08:54)
[2018-09-27] MEDS: Apixaban 2.5 MG TAB PO SCH ×2 (08:55→21:40)
[2018-09-27] MEDS: hydrALAZINE 25 MG TAB PO SCH ×3 (08:55→21:40)
[2018-09-27] MEDS: Gabapentin 300 MG CAP PO SCH ×3 (08:55→21:40)
[2018-09-27] MEDS: cloNIDine 0.1 MG TAB PO SCH ×3 (08:56→21:39)
[2018-09-27] MEDS: Amlodipine 10 MG TAB PO SCH (08:57)
[2018-09-27] MEDS: Saccharomyces boulardii 250 MG CAP PO SCH (08:57)
[2018-09-27] MEDS: Lidocaine 5% Patch TD SCH (09:07)
[2018-09-27] MEDS: Polyethylene Glycol 3350 17 GM Packet PO SCH (09:08)
[2018-09-27] MEDS: Acetaminophen 325 MG TAB PO SCH ×3 (09:09→21:40)
[2018-09-27] MEDS: Losartan 25 MG TAB PO SCH (09:11)
--- NOTE | 2018-09-27 13:53 | PRG ---
DATE OF SERVICE: 09/27/2018 SUBJECTIVE: Ms. Cabrera is up in chair and just finished her lunch. Her pain is better controlled. Denies any complaints or questions. OBJECTIVE: VITAL SIGNS: She is afebrile. Heart rate is 74, respirations 20, oxygen saturation 93% on room air, and blood pressure 141/63. CARDIOVASCULAR SYSTEM: S1 and S2 plus. RESPIRATORY SYSTEM: Normal vesicular breath sounds. ABDOMEN: Soft and nontender. Bowel sounds heard in all quadrants. EXTREMITIES: Without cyanosis or clubbing. CENTRAL NERVOUS SYSTEM: Awake and responsive. Cranial nerves 2 through 12 intact. Generalized weakness. IMPRESSION: 1. Mesenteric artery ischemia, much improved. 2. Severe mesenteric artery stenosis as well as bilateral renal artery stenosis. 3. Atrial fibrillation. 4. Hypertension, better controlled. 5. Dyslipidemia. 6. Osteoarthritis. 7. T11 compression fracture. 8. Acute hypoxemic respiratory failure. PLAN: 1. Continue to titrate oxygen as tolerated. 2. Heart healthy diet. 3. Spinal precautions. 4. DVT and stress ulcer prophylaxis. 5. Decubitus precautions. 6. Routine laboratory values. 7. Continue physical therapy. 8. Discharge planning. Job ID: [id number]
[2018-09-27] MEDS: Digoxin 0.125 MG TAB PO SCH (21:39)
[2018-09-27] MEDS: Montelukast Sodium 10 mg Tablet PO SCH (21:39)
[2018-09-27] MEDS: Lidocaine Patch Removal 1 EACH TOP SCH (21:40)
[2018-09-28] MEDS: Lidocaine 5% Patch TD SCH (05:33)
[2018-09-28] MEDS: hydrALAZINE 25 MG TAB PO SCH ×3 (08:38→20:31)
[2018-09-28] MEDS: Atorvastatin Calcium 40 MG TAB PO SCH (08:38)
[2018-09-28] MEDS: Acetaminophen 325 MG TAB PO SCH ×3 (08:38→20:32)
[2018-09-28] MEDS: Saccharomyces boulardii 250 MG CAP PO SCH (08:38)
[2018-09-28] MEDS: Amlodipine 10 MG TAB PO SCH (08:39)
[2018-09-28] MEDS: Gabapentin 300 MG CAP PO SCH ×3 (08:40→20:31)
[2018-09-28] MEDS: cloNIDine 0.1 MG TAB PO SCH ×3 (08:40→20:31)
[2018-09-28] MEDS: Losartan 25 MG TAB PO SCH (08:40)
[2018-09-28] MEDS: Apixaban 2.5 MG TAB PO SCH ×2 (08:40→20:31)
[2018-09-28] MEDS: HYDROcodone/Acetaminophen 5/325 mg Tablet PO PRN ×2 (08:41→20:30)
[2018-09-28] MEDS: Polyethylene Glycol 3350 17 GM Packet PO SCH (08:46)
--- NOTE | 2018-09-28 14:39 | PRG ---
DATE OF SERVICE: 09/28/2018 SUBJECTIVE: Ms. Cabrera is doing well, denies any complaints, but spoke with Speech Therapy, and Speech Therapy states that her swallowing is not safe enough for her to be on thin liquids. She recommended thickeners, but the patient refused. She also recommended modified barium swallow, which the patient refused. I spoke with the patient as well and she states that even if she does the modified barium swallow and they recommend a change in her diet, she is not going to follow it and so there is really no point in doing the test in the first place. The patient is aware of the risks or aspiration. OBJECTIVE: VITAL SIGNS: She is afebrile. Heart rate is 74, respirations 24, oxygen saturation is 92%, blood pressure is 151/67. CARDIOVASCULAR: S1, S2 plus. RESPIRATORY: Normal vesicular breath sounds. ABDOMEN: Soft and nontender. Bowel sounds heard in all quadrants. EXTREMITIES: Without cyanosis or clubbing. Peripheral pulses are palpable. CENTRAL NERVOUS SYSTEM: Awake and responsive. Cranial nerves 2 through 12 intact. Generalized weakness. IMPRESSION: 1. Mesenteric artery ischemia, much improved. 2. Severe mesenteric artery and bilateral renal artery stenosis. 3. T11 compression fracture. 4. Hypertension. 5. Dyslipidemia. 6. Atrial fibrillation. 7. Osteoporosis. 8. Dysphagia. PLAN: 1. Continue current medications. 2. The patient refuses any change in her diet or food consistency. She is aware of the risks. 3. Continue TLSO brace. 4. Heart-healthy diet. 5. Physical therapy. 6. Nutritional support. 7. Monitor heart rate and rhythm. 8. Routine laboratory values. 9. Discussed with the patient and her [id number] in detail and all questions answered. Job ID: [id number]
[2018-09-28] MEDS: Digoxin 0.125 MG TAB PO SCH (20:30)
[2018-09-28] MEDS: Montelukast Sodium 10 mg Tablet PO SCH (20:31)
[2018-09-29] MEDS: Lidocaine Patch Removal 1 EACH TOP SCH ×2 (01:09→20:48)
[2018-09-29] MEDS: Atorvastatin Calcium 40 MG TAB PO SCH (09:17)
[2018-09-29] MEDS: Saccharomyces boulardii 250 MG CAP PO SCH (09:17)
[2018-09-29] MEDS: Polyethylene Glycol 3350 17 GM Packet PO SCH (09:17)
[2018-09-29] MEDS: Acetaminophen 325 MG TAB PO SCH ×3 (09:18→20:45)
[2018-09-29] MEDS: Losartan 25 MG TAB PO SCH (09:18)
[2018-09-29] MEDS: hydrALAZINE 25 MG TAB PO SCH ×3 (09:18→20:45)
[2018-09-29] MEDS: Gabapentin 300 MG CAP PO SCH ×3 (09:19→20:47)
[2018-09-29] MEDS: cloNIDine 0.1 MG TAB PO SCH ×3 (09:20→20:46)
[2018-09-29] MEDS: Amlodipine 10 MG TAB PO SCH (09:20)
[2018-09-29] MEDS: Apixaban 2.5 MG TAB PO SCH ×2 (09:20→20:47)
[2018-09-29] MEDS: Lidocaine 5% Patch TD SCH (09:27)
[2018-09-29] MEDS: HYDROcodone/Acetaminophen 5/325 mg Tablet PO PRN ×2 (10:08→18:40)
--- NOTE | 2018-09-29 13:46 | PRG ---
DATE OF SERVICE: 09/29/2018 SUBJECTIVE: Ms. Cabrera is doing well. Denies any complaints. Resting comfortably. Her sister is in the room. Her FMLA papers were filled out. Pain is controlled. OBJECTIVE: VITAL SIGNS: She is afebrile. Heart rate 73, respirations 18, oxygen saturation 94% on 1 L, blood pressure 149/65. CARDIOVASCULAR: S1 and S2 plus. RESPIRATORY: Normal vesicular breath sounds. ABDOMEN: Soft and nontender. Bowel sounds heard in all quadrants. EXTREMITIES: Without cyanosis or clubbing. CENTRAL NERVOUS SYSTEM: Awake and responsive. Cranial nerves 2 through 12 intact. Generalized weakness. IMPRESSION: 1. Atrial fibrillation, now on anticoagulation. 2. Hypertension, improved, controlled. 3. Dyslipidemia. 4. Osteoarthritis. 5. Mesenteric ischemia, much improved. 6. Severe mesenteric and bilateral renal artery stenosis. 7. T11 compression fracture. 8. Anemia, likely due to chronic disease. 9. Acute respiratory failure with hypoxemia. PLAN: 1. Continue current medications. 2. Spinal precautions. 3. TLSO brace. 4. Nutritional support with aspiration precautions, the patient refuses to of the liquids and is aware of the risks. 5. Physical therapy. 6. Routine laboratory values. 7. FMLA papers filled out. 8. Discussed with the patient and nursing in detail. All questions answered. 9. Continue to titrate oxygen as tolerated. Job ID: [id number]
[2018-09-29] MEDS: Digoxin 0.125 MG TAB PO SCH (20:45)
[2018-09-29] MEDS: Montelukast Sodium 10 mg Tablet PO SCH (20:47)
[2018-09-30] MEDS: HYDROcodone/Acetaminophen 5/325 mg Tablet PO PRN ×3 (03:27→20:10)
[2018-09-30] MEDS: Polyethylene Glycol 3350 17 GM Packet PO SCH (09:04)
[2018-09-30] MEDS: Saccharomyces boulardii 250 MG CAP PO SCH (09:05)
[2018-09-30] MEDS: Atorvastatin Calcium 40 MG TAB PO SCH (09:05)
[2018-09-30] MEDS: Gabapentin 300 MG CAP PO SCH ×3 (09:06→20:12)
[2018-09-30] MEDS: Acetaminophen 325 MG TAB PO SCH ×3 (09:07→20:14)
[2018-09-30] MEDS: Apixaban 2.5 MG TAB PO SCH ×2 (09:08→20:14)
[2018-09-30] MEDS: Losartan 25 MG TAB PO SCH (09:08)
[2018-09-30] MEDS: hydrALAZINE 25 MG TAB PO SCH ×3 (09:10→20:14)
[2018-09-30] MEDS: cloNIDine 0.1 MG TAB PO SCH ×3 (09:11→20:14)
[2018-09-30] MEDS: Amlodipine 10 MG TAB PO SCH (09:11)
[2018-09-30] MEDS: Lidocaine 5% Patch TD SCH (09:12)
[2018-09-30] MEDS: Montelukast Sodium 10 mg Tablet PO SCH (20:12)
[2018-09-30] MEDS: Digoxin 0.125 MG TAB PO SCH (20:13)
[2018-09-30] MEDS: Lidocaine Patch Removal 1 EACH TOP SCH (20:16)
[2018-10-01] MEDS: Lidocaine 5% Patch TD SCH (09:22)
[2018-10-01] MEDS: Polyethylene Glycol 3350 17 GM Packet PO SCH (09:22)
[2018-10-01] MEDS: Gabapentin 300 MG CAP PO SCH ×3 (09:23→20:23)
[2018-10-01] MEDS: Saccharomyces boulardii 250 MG CAP PO SCH (09:23)
[2018-10-01] MEDS: Atorvastatin Calcium 40 MG TAB PO SCH (09:23)
[2018-10-01] MEDS: Losartan 25 MG TAB PO SCH (09:23)
[2018-10-01] MEDS: Apixaban 2.5 MG TAB PO SCH ×2 (09:24→20:21)
[2018-10-01] MEDS: hydrALAZINE 25 MG TAB PO SCH ×3 (09:24→20:20)
[2018-10-01] MEDS: Amlodipine 10 MG TAB PO SCH (09:24)
[2018-10-01] MEDS: Acetaminophen 325 MG TAB PO SCH ×3 (09:24→20:22)
[2018-10-01] MEDS: cloNIDine 0.1 MG TAB PO SCH ×3 (09:25→20:22)
[2018-10-01] MEDS: HYDROcodone/Acetaminophen 5/325 mg Tablet PO PRN ×2 (09:40→20:23)
--- NOTE | 2018-10-01 10:58 | PRG ---
DATE OF SERVICE: 10/01/2018 SUBJECTIVE: The patient feels well. No complaints at rest, abdominal pain, back pain. She is only having right-sided pain. She is eating well. No coughing, shortness of breath, or chest pain. OBJECTIVE: VITAL SIGNS: Temperature 98.9, pulse 76, respirations 20, O2 sats 94% on 1 L, and blood pressure 149/69. ABDOMEN: Soft and nontender. BACK: Shows tenderness to palpation of the mid back. ASSESSMENT: 1. Stable mesenteric ischemia, on apixaban. 2. Stable atrial fibrillation, on rate control and anticoagulation. 3. T11 compression fracture with decreasing pain. 4. Deconditioning, improving greatly. 5. Respiratory failure, hypoxemia, we will attempt to titrate oxygen off. PLAN: 1. Continue PT/OT. 2. Continue apixaban. 3. Continue pain relief with tramadol as needed. 4. Continue to monitor vital signs closely with therapy. Job ID: [id number]
--- NOTE | 2018-10-01 10:59 | PRG ---
DATE OF SERVICE: 09/30/2018 SUBJECTIVE: Ms. Cabrera is doing well. Denies any complaints. Resting comfortably. No family at bedside. OBJECTIVE: VITAL SIGNS: She is afebrile. Heart rate 76, respirations 20, oxygen saturation 94%, and blood pressure 149/69. CARDIOVASCULAR SYSTEM: S1 and S2 plus. RESPIRATORY SYSTEM: Normal vesicular breath sounds. ABDOMEN: Soft and nontender. Bowel sounds heard in all quadrants. EXTREMITIES: Without cyanosis or clubbing. CENTRAL NERVOUS SYSTEM: Awake and responsive. Generalized weakness. IMPRESSION: 1. Resolved mesenteric ischemia. 2. Severe mesenteric artery and bilateral renal artery stenosis. 3. Atrial fibrillation, rate controlled. 4. T11 compression fracture. 5. Hypertension. 6. Dyslipidemia. 7. Dysphagia. PLAN: 1. Continue current medications. 2. Heart-healthy diet with aspiration precautions. The patient refuses nectar thick liquids. 3. DVT prophylaxis - the patient is on Eliquis. 4. Spinal precautions with TLSO brace. 5. Physical therapy. 6. Routine laboratory values. 7. Discussed with the patient and sister in detail. All questions were answered. Job ID: [id number]
[2018-10-01] MEDS: Digoxin 0.125 MG TAB PO SCH (20:20)
[2018-10-01] MEDS: Montelukast Sodium 10 mg Tablet PO SCH (20:22)
[2018-10-01] MEDS: Lidocaine Patch Removal 1 EACH TOP SCH (20:25)
[2018-10-02] MEDS: Polyethylene Glycol 3350 17 GM Packet PO SCH (09:05)
[2018-10-02] MEDS: Acetaminophen 325 MG TAB PO SCH ×3 (09:05→20:24)
[2018-10-02] MEDS: Saccharomyces boulardii 250 MG CAP PO SCH (09:05)
[2018-10-02] MEDS: hydrALAZINE 25 MG TAB PO SCH ×3 (09:05→20:27)
[2018-10-02] MEDS: Gabapentin 300 MG CAP PO SCH ×3 (09:06→20:27)
[2018-10-02] MEDS: Apixaban 2.5 MG TAB PO SCH ×2 (09:06→20:27)
[2018-10-02] MEDS: Atorvastatin Calcium 40 MG TAB PO SCH (09:06)
[2018-10-02] MEDS: cloNIDine 0.1 MG TAB PO SCH ×3 (09:06→20:26)
[2018-10-02] MEDS: Losartan 25 MG TAB PO SCH (09:06)
[2018-10-02] MEDS: Amlodipine 10 MG TAB PO SCH (09:07)
[2018-10-02] MEDS: Lidocaine 5% Patch TD SCH (09:12)
[2018-10-02] MEDS: HYDROcodone/Acetaminophen 5/325 mg Tablet PO PRN ×2 (09:19→18:24)
[2018-10-02] MEDS: Montelukast Sodium 10 mg Tablet PO SCH (20:25)
[2018-10-02] MEDS: Digoxin 0.125 MG TAB PO SCH (20:26)
[2018-10-02] MEDS: Lidocaine Patch Removal 1 EACH TOP SCH (20:28)
--- NOTE | 2018-10-03 07:52 | PRG ---
DATE OF SERVICE: 10/02/2018 SUBJECTIVE: The patient is sitting in a chair, eating supper, ready to take off her thoracic spine brace off. She states it has caused her discomfort on her right side and she has no back pain. She is having no abdominal pain. She is eating well. OBJECTIVE: VITAL SIGNS: Temperature is 96.6, pulse 66, respirations 18, O2 sats 94% on room air, blood pressure 140/63. LUNGS: Clear. CARDIAC: Regular rhythm. No gallops or murmurs. ABDOMEN: Soft and nontender. SKIN AND EXTREMITIES: No edema. ASSESSMENT: 1. Resolved mesenteric ischemia. 2. Stable atrial fibrillation, rate control and anticoagulated. 3. T11 compression fracture causing no symptoms, although significant soreness from TLSO brace. We will discuss with Dr. Rodgers. 4. Hypertension, controlled to goal. PLAN: 1. Continue PT/OT. 2. Discussed TLSO brace with PCP. 3. Continue rate control and anticoagulation of atrial fibrillation. 4. Monitor for aspiration as the patient uses nectar thick liquids which had been recommended by Speech. Job ID: [id number]
[2018-10-03] MEDS: Lidocaine 5% Patch TD SCH (09:35)
[2018-10-03] MEDS: Saccharomyces boulardii 250 MG CAP PO SCH (09:35)
[2018-10-03] MEDS: HYDROcodone/Acetaminophen 5/325 mg Tablet PO PRN ×2 (09:36→18:43)
[2018-10-03] MEDS: Apixaban 2.5 MG TAB PO SCH ×2 (09:38→20:15)
[2018-10-03] MEDS: Losartan 25 MG TAB PO SCH (09:38)
[2018-10-03] MEDS: Atorvastatin Calcium 40 MG TAB PO SCH (09:39)
[2018-10-03] MEDS: Gabapentin 300 MG CAP PO SCH ×3 (09:40→20:15)
[2018-10-03] MEDS: hydrALAZINE 25 MG TAB PO SCH ×3 (09:40→20:15)
[2018-10-03] MEDS: Acetaminophen 325 MG TAB PO SCH ×3 (09:41→20:15)
[2018-10-03] MEDS: cloNIDine 0.1 MG TAB PO SCH ×3 (09:42→20:14)
[2018-10-03] MEDS: Polyethylene Glycol 3350 17 GM Packet PO SCH (09:45)
[2018-10-03] MEDS ORDERED: Amlodipine 10 MG TAB ONE (09:54)
[2018-10-03] MEDS: Amlodipine 10 MG TAB PO SCH (09:55)
--- NOTE | 2018-10-03 14:16 | PRG ---
DATE OF SERVICE: 10/03/2018 SUBJECTIVE: Ms. Cabrera is doing well. Denies any complaints. Tolerating her spinal brace. She continues to have some coughing spells when she drinks anything, but does not want to use a thickener. Her sister is in the room and both are aware of the risks. OBJECTIVE: VITAL SIGNS: She is afebrile. Heart rate 65, respirations 22, oxygen saturation 94%, and blood pressure 148/66. CARDIOVASCULAR: S1 and S2 plus. RESPIRATORY: Normal vesicular breath sounds. ABDOMEN: Soft, nontender. Bowel sounds heard in all quadrants. EXTREMITIES: Without cyanosis or clubbing. CENTRAL NERVOUS SYSTEM: Awake and responsive. Generalized weakness. IMPRESSION: 1. T11 compression fracture. 2. Mesenteric artery ischemia, resolved. 3. 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 4. Hypertension. 5. Dyslipidemia. 6. Osteoarthritis. 7. Atrial fibrillation. 8. Dysphagia. PLAN: 1. Continue current medications. 2. Nutritional support. 3. DVT and stress ulcer prophylaxis. 4. Decubitus precautions. 5. Routine laboratory values. 6. Titrate oxygen. 7. Spinal precautions. 8. Physical therapy. 9. Aspiration precautions. 10. Discussed with the patient and sister in detail. All questions answered. Job ID: [id number]
[2018-10-03] MEDS: Montelukast Sodium 10 mg Tablet PO SCH (20:15)
[2018-10-03] MEDS: Digoxin 0.125 MG TAB PO SCH (20:15)
[2018-10-03] MEDS: Lidocaine Patch Removal 1 EACH TOP SCH (20:19)
[2018-10-04] MEDS: Acetaminophen 325 MG TAB PO SCH ×3 (08:05→20:15)
[2018-10-04] MEDS: Apixaban 2.5 MG TAB PO SCH ×2 (08:05→20:15)
[2018-10-04] MEDS: HYDROcodone/Acetaminophen 5/325 mg Tablet PO PRN ×3 (08:05→20:14)
[2018-10-04] MEDS: Losartan 25 MG TAB PO SCH (08:07)
[2018-10-04] MEDS: Polyethylene Glycol 3350 17 GM Packet PO SCH (08:08)
[2018-10-04] MEDS: Lidocaine 5% Patch TD SCH (08:10)
[2018-10-04] MEDS: Amlodipine 5 MG TAB PO SCH (08:11)
[2018-10-04] MEDS: cloNIDine 0.1 MG TAB PO SCH ×3 (08:12→20:16)
[2018-10-04] MEDS: Atorvastatin Calcium 20 MG TAB PO SCH (08:13)
[2018-10-04] MEDS: hydrALAZINE 25 MG TAB PO SCH ×3 (08:13→20:15)
[2018-10-04] MEDS: Saccharomyces boulardii 250 MG CAP PO SCH (08:14)
[2018-10-04] MEDS: Gabapentin 300 MG CAP PO SCH ×3 (08:14→20:15)
--- NOTE | 2018-10-04 14:55 | PRG ---
DATE OF SERVICE: 10/04/2018 SUBJECTIVE: Ms. Cabrera is doing the same. She is up in her chair, tolerating her brace. States that her pain is mostly controlled. No family at bedside. OBJECTIVE: VITAL SIGNS: She is afebrile, heart rate is 70, respirations 19, oxygen saturation 95% on room air, and blood pressure 168/73. CARDIOVASCULAR SYSTEM: S1 and S2 plus. Irregularly irregular. RESPIRATORY SYSTEM: Normal vesicular breath sounds. ABDOMEN: Soft, nontender. Bowel sounds heard in all quadrants. EXTREMITIES: Without cyanosis or clubbing. CENTRAL NERVOUS SYSTEM: Awake and responsive. Generalized weakness. IMPRESSION: 1. T11 compression fracture on a TLSO brace. 2. Atrial fibrillation, currently on Eliquis. 3. Resolved mesenteric ischemia. 4. 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 5. Hypertension. 6. Dyslipidemia. 7. Osteoarthritis. 8. Dysphagia. 9. Acute hypoxemic respiratory failure. PLAN: 1. Continue current medications. 2. Nutritional support. 3. Spinal precautions. 4. Titrate oxygen. 5. Physical therapy. 6. DVT prophylaxis - the patient is on Eliquis. 7. Decubitus precautions. 8. Routine laboratory values. 9. Discussed with the patient in detail. All questions answered. Job ID: [id number]
[2018-10-04] MEDS: Montelukast Sodium 10 mg Tablet PO SCH (20:15)
[2018-10-04] MEDS: Digoxin 0.125 MG TAB PO SCH (20:15)
[2018-10-04] MEDS: Lidocaine Patch Removal 1 EACH TOP SCH (20:16)
[2018-10-05] MEDS: HYDROcodone/Acetaminophen 5/325 mg Tablet PO PRN ×3 (07:42→20:48)
[2018-10-05] MEDS: Losartan 25 MG TAB PO SCH (09:41)
[2018-10-05] MEDS: Atorvastatin Calcium 20 MG TAB PO SCH (09:41)
[2018-10-05] MEDS: Saccharomyces boulardii 250 MG CAP PO SCH (09:41)
[2018-10-05] MEDS: Polyethylene Glycol 3350 17 GM Packet PO SCH (09:41)
[2018-10-05] MEDS: Gabapentin 300 MG CAP PO SCH ×3 (09:42→20:47)
[2018-10-05] MEDS: Acetaminophen 325 MG TAB PO SCH ×3 (09:42→20:47)
[2018-10-05] MEDS: hydrALAZINE 25 MG TAB PO SCH ×3 (09:42→20:47)
[2018-10-05] MEDS: cloNIDine 0.1 MG TAB PO SCH ×3 (09:42→20:47)
[2018-10-05] MEDS: Apixaban 2.5 MG TAB PO SCH ×2 (09:42→20:47)
[2018-10-05] MEDS: Lidocaine 5% Patch TD SCH (09:43)
[2018-10-05] MEDS: Amlodipine 5 MG TAB PO SCH (09:43)
--- NOTE | 2018-10-05 13:05 | PRG ---
DATE OF SERVICE: 10/05/2018 SUBJECTIVE: Ms. Cabrera is doing well. She is up in her chair. She states that she was able to walk by herself for a little bit today. The pain is improving. Tolerating her p.o. intake. OBJECTIVE: VITAL SIGNS: She is afebrile. Heart rate 70, respirations 18, oxygen saturation 93%, blood pressure 153/69. CARDIOVASCULAR: S1 and S2 plus. RESPIRATORY: Normal vesicular breath sounds. ABDOMEN: Soft, nontender. Bowel sounds heard in all quadrants. EXTREMITIES: Without cyanosis or clubbing. CENTRAL NERVOUS SYSTEM: Generalized weakness, otherwise nonfocal. IMPRESSION: 1. T11 compression fracture. 2. Atrial fibrillation. 3. Resolved mesenteric ischemia. 4. Severe mesenteric artery and bilateral renal artery stenosis. 5. Hypertension. 6. Dyslipidemia. 7. Osteoarthritis. 8. Dysphagia. 9. Acute hypoxemic respiratory failure. PLAN: 1. Reinforce complaints with incentive spirometry. 2. Nutritional support. 3. Aspiration precautions - the patient refuses thickened liquids. 4. Continue spinal precautions. 5. DVT prophylaxis - the patient is on Eliquis. 6. Physical therapy. 7. Routine laboratory values. Job ID: [id number]
[2018-10-05] MEDS: Montelukast Sodium 10 mg Tablet PO SCH (20:47)
[2018-10-05] MEDS: Digoxin 0.125 MG TAB PO SCH (20:48)
[2018-10-05] MEDS: Lidocaine Patch Removal 1 EACH TOP SCH ×2 (20:49→20:53)
[2018-10-06 05:41] LABS: #Basophils 0.1 thou/uL (0.0-0.2); #Eosinphils 0.3 thou/uL (0.0-0.7); #Lymphocytes 2.2 thou/uL (1.20-3.40); #Monocytes 0.6 thou/uL (0.11-0.59); #Neutrophils 2.6 thou/uL (1.40-6.50); %Basophils 1.3 % (0.0-1.0); %Eosinophils 5.2 % (0.0-10.0); %Monocytes 9.8 % (0.0-10.0); %Neutrophils 44.8 % (42.0-75.0); Mean Corpuscular HGB CONC 31.6 g/dL (32.0-36.0); Mean Corpuscular Hemoglobin 28.8 pg (27.0-31.0); Platelet Count 307 thou/uL (130-400); RBC Distribution Width 12.2 % (11.5-14.5); Red Blood Cell (RBC) Count 3.46 mill/uL (4.20-5.40); White Blood Cell (WBC) Count 5.7 thou/uL (4.8-10.8)
[2018-10-06 05:56] LABS: Anion Gap 12 mmol/L (10-20); BUN (Urea Nitrogen) 18 mg/dL (9.8-20.1); Calc. Creatinine Clearance 47 mL/min (70-130); Calcium 9.9 mg/dL (7.8-10.44); Carbon Dioxide 29 mmol/L (23-31); Chloride 103 mmol/L (98-107); Estimated GFR-MDRD 71; Glucose 99 mg/dL (83-110); Potassium 3.9 mmol/L (3.5-5.1); Sodium 140 mmol/L (136-145)
[2018-10-06] MEDS: Saccharomyces boulardii 250 MG CAP PO SCH (08:46)
[2018-10-06] MEDS: Polyethylene Glycol 3350 17 GM Packet PO SCH (08:46)
[2018-10-06] MEDS: Lidocaine 5% Patch TD SCH (08:46)
[2018-10-06] MEDS: hydrALAZINE 25 MG TAB PO SCH ×3 (08:47→20:52)
[2018-10-06] MEDS: Atorvastatin Calcium 40 MG TAB PO SCH (08:47)
[2018-10-06] MEDS: Apixaban 2.5 MG TAB PO SCH ×2 (08:47→20:52)
[2018-10-06] MEDS: Losartan 25 MG TAB PO SCH (08:47)
[2018-10-06] MEDS: Gabapentin 300 MG CAP PO SCH ×3 (08:47→20:53)
[2018-10-06] MEDS: Amlodipine 5 MG TAB PO SCH (08:48)
[2018-10-06] MEDS: Acetaminophen 325 MG TAB PO SCH ×3 (08:48→20:52)
[2018-10-06] MEDS: cloNIDine 0.1 MG TAB PO SCH ×3 (08:48→21:03)
[2018-10-06] MEDS: HYDROcodone/Acetaminophen 5/325 mg Tablet PO PRN ×3 (08:58→20:54)
--- NOTE | 2018-10-06 13:29 | PRG ---
DATE OF SERVICE: 10/06/2018 SUBJECTIVE: Ms. Cabrera is doing the same. Denies any complaints. States that she is progressing with therapy. No family at bedside. OBJECTIVE: VITAL SIGNS: She is afebrile. Heart rate 67, respirations 20, oxygen saturation 90% on room air, and blood pressure 149/67. CARDIOVASCULAR: S1 and S2 plus. RESPIRATORY: Normal vesicular breath sounds. ABDOMEN: Soft and nontender. Bowel sounds heard in all quadrants. EXTREMITIES: Without cyanosis or clubbing. CENTRAL NERVOUS SYSTEM: Awake and responsive. Generalized weakness. IMPRESSION: 1. Atrial fibrillation. 2. Hypertension. 3. Dyslipidemia. 4. Osteoarthritis. 5. T11 compression fracture. 6. Resolved mesenteric ischemia. 7. Atherosclerotic vascular disease. PLAN: 1. Continue current medications. 2. TLSO brace. 3. Heart healthy diet. 4. Titrate oxygen, currently on room air. 5. Resolved acute hypoxemic respiratory failure. 6. Nutritional support. 7. Physical therapy. 8. Routine laboratory values. Job ID: [id number]
[2018-10-06] MEDS: Montelukast Sodium 10 mg Tablet PO SCH (20:52)
[2018-10-06] MEDS: Digoxin 0.125 MG TAB PO SCH (20:53)
[2018-10-06] MEDS: Lidocaine Patch Removal 1 EACH TOP SCH (21:03)
[2018-10-07] MEDS: Lidocaine 5% Patch TD SCH (08:07)
[2018-10-07] MEDS: Acetaminophen 325 MG TAB PO SCH ×3 (08:07→20:12)
[2018-10-07] MEDS: Polyethylene Glycol 3350 17 GM Packet PO SCH (08:07)
[2018-10-07] MEDS: Losartan 25 MG TAB PO SCH (08:08)
[2018-10-07] MEDS: hydrALAZINE 25 MG TAB PO SCH ×3 (08:08→20:12)
[2018-10-07] MEDS: Gabapentin 300 MG CAP PO SCH ×3 (08:08→20:11)
[2018-10-07] MEDS: Apixaban 2.5 MG TAB PO SCH ×2 (08:08→20:11)
[2018-10-07] MEDS: Saccharomyces boulardii 250 MG CAP PO SCH (08:08)
[2018-10-07] MEDS: Amlodipine 5 MG TAB PO SCH (08:09)
[2018-10-07] MEDS: cloNIDine 0.1 MG TAB PO SCH ×3 (08:09→20:12)
[2018-10-07] MEDS: Atorvastatin Calcium 40 MG TAB PO SCH (08:09)
[2018-10-07] MEDS: HYDROcodone/Acetaminophen 5/325 mg Tablet PO PRN ×3 (08:10→20:12)
--- NOTE | 2018-10-07 13:08 | PRG ---
DATE OF SERVICE: 10/07/2018 SUBJECTIVE: The patient is a very pleasant 87-year-old white female, who was brought to the emergency room and was found to have mesenteric ischemia. The patient had superior mesenteric artery stenosis and bilateral severe renal artery stenosis as well as T11 compression fracture. She was started on Eliquis, advised to wear TLSO brace, and they did not recommend any intervention for mesenteric artery stenosis. She was admitted to [facility] for physical therapy and occupational therapy and pain control. The patient states she is actually doing fairly well today and has no complaints. OBJECTIVE: VITAL SIGNS: Today revealed blood pressure 150/68, pulse 58, respirations 20, O2 saturation 93% on 2 L nasal cannula, and T-max 98.5. GENERAL: This is a well-developed, well-nourished, very pleasant 87-year-old white female, in no apparent distress at this time. HEENT: Reveals normocephalic and nontraumatic cranium. Pupils equally round and reactive. Extraocular movements intact. Nose and throat are slightly dry but clear. NECK: Supple without masses, nodes, or bruits. CHEST: Clear to auscultation. No rales, rhonchi, wheezes, or cough is heard. HEART: Reveals a regular rate and rhythm without murmurs, gallops or rubs. ABDOMEN: Soft and nontender without organomegaly. Normal bowel sounds are heard in all 4 quadrants. No rebound or guarding is noted. GENITOURINARY: Exam is deferred. EXTREMITIES: Revealed no clubbing or cyanosis. NEUROLOGIC: The patient is oriented x3. The patient does have generalized weakness. IMPRESSION: 1. Atrial fibrillation. 2. Hypertension. 3. T11 compression fracture. 4. Mesenteric ischemia. 5. Atherosclerotic vascular disease. 6. Osteoarthritis. 7. Hyperlipidemia. 8. Generalized weakness. PLAN: 1. Continue present medications. 2. Continue TLSO brace. 3. Titrate oxygen as needed. 4. Continue to monitor the patient for acute hypoxemic respiratory failure. 5. Nutritional support with a healthy heart diet. 6. Continue Physical Therapy and Occupational Therapy. 7. Routine lab values. 8. Stress ulcer prophylaxis. 9. Decubitus precautions. 10. DVT prophylaxis. Job ID: [id number]
[2018-10-07] MEDS: Montelukast Sodium 10 mg Tablet PO SCH (20:11)
[2018-10-07] MEDS: Digoxin 0.125 MG TAB PO SCH (20:11)
[2018-10-07] MEDS: Lidocaine Patch Removal 1 EACH TOP SCH (20:12)
[2018-10-08] MEDS: HYDROcodone/Acetaminophen 5/325 mg Tablet PO PRN ×2 (08:02→13:50)
[2018-10-08] MEDS: Saccharomyces boulardii 250 MG CAP PO SCH (08:04)
[2018-10-08] MEDS: Polyethylene Glycol 3350 17 GM Packet PO SCH (08:04)
[2018-10-08] MEDS: Lidocaine 5% Patch TD SCH (08:05)
[2018-10-08] MEDS: Atorvastatin Calcium 40 MG TAB PO SCH (08:05)
[2018-10-08] MEDS: Acetaminophen 325 MG TAB PO SCH ×3 (08:06→21:36)
[2018-10-08] MEDS: Gabapentin 300 MG CAP PO SCH ×3 (08:07→21:36)
[2018-10-08] MEDS: hydrALAZINE 25 MG TAB PO SCH ×3 (08:07→21:35)
[2018-10-08] MEDS: Losartan 25 MG TAB PO SCH (08:08)
[2018-10-08] MEDS: Apixaban 2.5 MG TAB PO SCH ×2 (08:08→21:36)
[2018-10-08] MEDS: Amlodipine 5 MG TAB PO SCH (08:11)
[2018-10-08] MEDS: cloNIDine 0.1 MG TAB PO SCH ×3 (08:12→21:36)
--- NOTE | 2018-10-08 08:49 | PRG ---
DATE OF SERVICE: 10/08/2018 SUBJECTIVE: Ms. Cabrera is a very pleasant 87-year-old white female, brought to emergency room, was found to have mesenteric ischemia. She had mesenteric aortic artery stenosis and bilateral severe renal artery stenosis as well as a T11 compression fracture. She was started on Eliquis and advised to wear the TLSO brace. No intervention was done in the mesenteric artery stenosis or the renal stenosis. She is admitted to [facility] for physical therapy and occupational therapy to increase her strength and her stamina and for pain control. The patient states she is doing better today and has no complaints. She thinks she is stronger and has less pain. OBJECTIVE: VITAL SIGNS: Reveal blood pressure this morning 172/69, pulse 68, respirations 20, O2 saturation 93% on room air, and T-max 96.5. GENERAL: This is a well-developed, well-nourished, very pleasant 87-year-old white female, in no apparent distress at this time. HEENT: Normocephalic and nontraumatic cranium. Pupils are equal, round, and reactive. Extraocular movements are intact. Nose and throat are slightly dry, but clear. NECK: Supple without masses, nodes, or bruits. CHEST: Clear to auscultation. No rales, rhonchi, or wheezes are heard. HEART: Reveals a regular rate and rhythm without murmurs, gallops, or rubs. ABDOMEN: Soft and nontender without organomegaly. Normal bowel sounds are noted. No rebound or guarding is noted. GENITOURINARY: Deferred. EXTREMITIES: Reveal no clubbing, cyanosis, or edema. NEUROLOGIC: The patient is oriented x3. The patient does have generalized weakness. IMPRESSION: 1. Hypertension. 2. Atrial fibrillation. 3. Mesenteric ischemia. 4. Atherosclerotic vascular disease. 5. T11 compression fracture. 6. Osteoarthritis. 7. Hyperlipidemia. 8. Generalized weakness. PLAN: 1. Continue present medications. 2. Encourage the patient to wear TLSO brace at all times when she is out of bed. 3. Titrate oxygen p.r.n. 4. Continue to monitor the patient for acute hypoxemic respiratory failure. 5. Nutritional support with a healthy diet. 6. Continue PT and OT. 7. Routine labs. 8. Stress ulcer prophylaxis. 9. Decubitus precautions. 10. DVT prophylaxis. Job ID: [id number]
[2018-10-08] MEDS: Montelukast Sodium 10 mg Tablet PO SCH (21:36)
[2018-10-08] MEDS: Digoxin 0.125 MG TAB PO SCH (21:36)
[2018-10-08] MEDS: Lidocaine Patch Removal 1 EACH TOP SCH (23:41)
[2018-10-09] MEDS: HYDROcodone/Acetaminophen 5/325 mg Tablet PO PRN ×3 (07:38→21:33)
[2018-10-09] MEDS: Polyethylene Glycol 3350 17 GM Packet PO SCH (09:44)
[2018-10-09] MEDS: Losartan 25 MG TAB PO SCH (09:46)
[2018-10-09] MEDS: Lidocaine 5% Patch TD SCH (09:46)
[2018-10-09] MEDS: Acetaminophen 325 MG TAB PO SCH ×3 (09:48→21:34)
[2018-10-09] MEDS: Gabapentin 300 MG CAP PO SCH ×3 (09:48→21:33)
[2018-10-09] MEDS: hydrALAZINE 25 MG TAB PO SCH ×3 (09:49→21:34)
[2018-10-09] MEDS: Atorvastatin Calcium 40 MG TAB PO SCH (09:50)
[2018-10-09] MEDS: Apixaban 2.5 MG TAB PO SCH ×2 (09:50→21:33)
[2018-10-09] MEDS: Amlodipine 5 MG TAB PO SCH (09:50)
[2018-10-09] MEDS: cloNIDine 0.1 MG TAB PO SCH ×3 (09:52→21:34)
[2018-10-09] MEDS: Saccharomyces boulardii 250 MG CAP PO SCH (09:58)
--- NOTE | 2018-10-09 10:09 | PRG ---
DATE OF SERVICE: 10/09/2018 SUBJECTIVE: Ms. Cabrera is a very pleasant 87-year-old white female. The patient was found to have mesenteric arteritis and bilateral severe renal artery stenosis as well as a T11 compression fracture. She was started on Eliquis and was advised to wear a TLSO brace. She had no significant intervention with her mesenteric artery stenosis or the renal stenosis. She was transferred to [facility] for PT and OT to increase her strength and stamina and for pain control. The patient states she had a good day yesterday and a good day so far today. She thinks she is doing well and getting stronger, and she is having less pain. OBJECTIVE: VITAL SIGNS: Reveal blood pressure is 167/84, which is slightly elevated, which was last night; pulse 78; respirations 18; O2 saturation 92% on room air; and T-max 97.2. GENERAL: This is a well-developed, well-nourished, very pleasant white female, in no apparent distress at this time. HEENT: Reveals normocephalic and nontraumatic cranium. The pupils are equal, round, and reactive. Extraocular movements are intact. Nose and throat are slightly dry, but they are clear. NECK: Supple without masses, nodes, or bruits. CHEST: Clear to auscultation. No rales, no rhonchi, no wheezes, and no cough is heard. HEART: Reveals a regular rate and rhythm without murmurs, gallops, or rubs. ABDOMEN: Soft, scaphoid, nontender, without organomegaly. Normal bowel sounds are noted in all 4 quadrants. No rebound or guarding is noted. : Deferred. EXTREMITIES: Reveal no clubbing, no cyanosis, and no edema. The patient is oriented x3. The patient does have generalized weakness. IMPRESSION: 1. Atrial fibrillation. 2. Hypertension. 3. Mesenteric ischemia. 4. Atherosclerotic heart disease. 5. T11 compression fracture. 6. Osteoarthritis. 7. Hyperlipidemia. 8. Generalized weakness. PLAN: 1. Continue present medications. 2. Encourage the patient to wear her TLSO brace at all times when she is out of bed. 3. Continue to monitor the patient for acute hypoxemic respiratory failure. 4. Nutritional support with healthy diet. 5. Titrate oxygen p.r.n. 6. Routine labs. 7. Stress ulcer prophylaxis. 8. Decubitus precautions. 9. DVT prophylaxis. 10. Continue physical therapy and occupational therapy. Job ID: [id number]
[2018-10-09] MEDS: Digoxin 0.125 MG TAB PO SCH (21:33)
[2018-10-09] MEDS: Montelukast Sodium 10 mg Tablet PO SCH (21:34)
[2018-10-09] MEDS: Lidocaine Patch Removal 1 EACH TOP SCH (21:35)
[2018-10-10] MEDS ORDERED: Amlodipine 5 MG TAB ONE (08:05)
[2018-10-10] MEDS: Lidocaine 5% Patch TD SCH (08:36)
[2018-10-10] MEDS: HYDROcodone/Acetaminophen 5/325 mg Tablet PO PRN ×3 (08:37→21:44)
[2018-10-10] MEDS: Polyethylene Glycol 3350 17 GM Packet PO SCH (08:37)
[2018-10-10] MEDS: Losartan 25 MG TAB PO SCH (08:38)
[2018-10-10] MEDS: Atorvastatin Calcium 40 MG TAB PO SCH (08:38)
[2018-10-10] MEDS: Saccharomyces boulardii 250 MG CAP PO SCH (08:38)
[2018-10-10] MEDS: Gabapentin 300 MG CAP PO SCH ×3 (08:38→21:46)
[2018-10-10] MEDS: Amlodipine 5 MG TAB PO SCH (08:39)
[2018-10-10] MEDS: hydrALAZINE 25 MG TAB PO SCH ×3 (08:39→21:44)
[2018-10-10] MEDS: Apixaban 2.5 MG TAB PO SCH ×2 (08:39→21:45)
[2018-10-10] MEDS: cloNIDine 0.1 MG TAB PO SCH ×3 (08:39→21:46)
[2018-10-10] MEDS: Acetaminophen 325 MG TAB PO SCH ×3 (08:39→22:18)
--- NOTE | 2018-10-10 14:46 | PRG ---
DATE OF SERVICE: 10/10/2018 SUBJECTIVE: Ms. Cabrera is up in her chair and eating lunch. She states she still has on and off pain in the right flank area. She denies any numbness or weakness. She states that she is improving with therapy. No family at bedside. OBJECTIVE: VITAL SIGNS: She is afebrile. Heart rate 69, respirations 18, and oxygen saturation 93%. CARDIOVASCULAR SYSTEM: S1 and S2 plus. RESPIRATORY SYSTEM: Normal vesicular breath sounds. ABDOMEN: Soft and nontender. Bowel sounds heard in all quadrants. EXTREMITIES: Without cyanosis or clubbing. CENTRAL NERVOUS SYSTEM: Awake and responsive. Generalized weakness. IMPRESSION: 1. T11 compression fracture. 2. Atrial fibrillation. 3. Hypertension. 4. Dyslipidemia. 5. Resolved mesenteric ischemia. 6. Atherosclerotic vascular disease. PLAN: 1. Continue current medications. 2. Nutritional support. 3. DVT and stress ulcer prophylaxis. 4. Decubitus precautions. 5. TLSO brace. 6. Aspiration precautions. 7. Physical Therapy. 8. Discharge planning. Job ID: [id number]
[2018-10-10] MEDS: Digoxin 0.125 MG TAB PO SCH (21:45)
[2018-10-10] MEDS: Montelukast Sodium 10 mg Tablet PO SCH (21:46)
[2018-10-10] MEDS: Lidocaine Patch Removal 1 EACH TOP SCH (22:18)
[2018-10-11] MEDS: HYDROcodone/Acetaminophen 5/325 mg Tablet PO PRN ×3 (07:43→21:01)
[2018-10-11] MEDS: Losartan 25 MG TAB PO SCH (09:11)
[2018-10-11] MEDS: Saccharomyces boulardii 250 MG CAP PO SCH (09:11)
[2018-10-11] MEDS: Polyethylene Glycol 3350 17 GM Packet PO SCH (09:11)
[2018-10-11] MEDS: Lidocaine 5% Patch TD SCH (09:11)
[2018-10-11] MEDS: Atorvastatin Calcium 40 MG TAB PO SCH (09:12)
[2018-10-11] MEDS: Gabapentin 300 MG CAP PO SCH ×3 (09:12→21:02)
[2018-10-11] MEDS: Apixaban 2.5 MG TAB PO SCH ×2 (09:12→21:02)
[2018-10-11] MEDS: hydrALAZINE 25 MG TAB PO SCH ×3 (09:12→21:02)
[2018-10-11] MEDS: Acetaminophen 325 MG TAB PO SCH ×3 (09:12→21:03)
[2018-10-11] MEDS: cloNIDine 0.1 MG TAB PO SCH ×3 (09:13→21:03)
[2018-10-11] MEDS: Amlodipine 5 MG TAB PO SCH (09:13)
--- NOTE | 2018-10-11 13:34 | PRG ---
DATE OF SERVICE: 10/11/2018 SUBJECTIVE: Ms. Cabrera is doing well except feeling cold. I raised the temperature in her room to 75. She denies any other questions or concerns. Pain is better today. Tolerating her p.o. intake. OBJECTIVE: VITAL SIGNS: She is afebrile. Heart rate 66 respirations 24, oxygen saturation 92% on room air, and blood pressure 157/70. CARDIOVASCULAR SYSTEM: S1 and S2 plus. RESPIRATORY SYSTEM: Normal vesicular breath sounds. ABDOMEN: Soft and nontender. Bowel sounds heard in all quadrants. EXTREMITIES: Without cyanosis or clubbing. CENTRAL NERVOUS SYSTEM: Awake and responsive. Generalized weakness. IMPRESSION: 1. Healing T11 vertebral fracture. 2. Atrial fibrillation. 3. Hypertension. 4. Dyslipidemia. 5. Resolved acute hypoxemic respiratory failure. 6. Mesenteric ischemia, resolved. PLAN: 1. Continue current medications. 2. Spinal precautions. 3. Nutritional support. 4. Physical therapy. 5. Pain control. 6. Monitor oxygen status. 7. DVT prophylaxis - the patient is on Eliquis. 8. Routine laboratory values. Job ID: [id number]
[2018-10-11] MEDS: Montelukast Sodium 10 mg Tablet PO SCH (21:01)
[2018-10-11] MEDS: Lidocaine Patch Removal 1 EACH TOP SCH (21:03)
[2018-10-11] MEDS: Digoxin 0.125 MG TAB PO SCH (21:03)
[2018-10-12] MEDS: HYDROcodone/Acetaminophen 5/325 mg Tablet PO PRN ×4 (08:00→21:48)
[2018-10-12] MEDS: Lidocaine 5% Patch TD SCH (08:06)
[2018-10-12] MEDS: Polyethylene Glycol 3350 17 GM Packet PO SCH (08:07)
[2018-10-12] MEDS: Gabapentin 300 MG CAP PO SCH ×3 (08:08→21:49)
[2018-10-12] MEDS: Acetaminophen 325 MG TAB PO SCH ×3 (08:08→22:05)
[2018-10-12] MEDS: Saccharomyces boulardii 250 MG CAP PO SCH (08:08)
[2018-10-12] MEDS: Atorvastatin Calcium 40 MG TAB PO SCH (08:09)
[2018-10-12] MEDS: Losartan 25 MG TAB PO SCH (08:10)
[2018-10-12] MEDS: Apixaban 2.5 MG TAB PO SCH ×2 (08:10→21:48)
[2018-10-12] MEDS: cloNIDine 0.1 MG TAB PO SCH ×3 (08:15→21:49)
[2018-10-12] MEDS: Amlodipine 5 MG TAB PO SCH (08:16)
[2018-10-12] MEDS: hydrALAZINE 25 MG TAB PO SCH ×3 (08:16→21:49)
[2018-10-12 11:18] LABS: Anion Gap 14 mmol/L (10-20); BUN (Urea Nitrogen) 16 mg/dL (9.8-20.1); Calc. Creatinine Clearance 44 mL/min (70-130); Calcium 9.8 mg/dL (7.8-10.44); Carbon Dioxide 25 mmol/L (23-31); Chloride 104 mmol/L (98-107); Estimated GFR-MDRD 66; Glucose 110 mg/dL (83-110); Potassium 3.6 mmol/L (3.5-5.1); Sodium 139 mmol/L (136-145)
--- NOTE | 2018-10-12 13:18 | RAD ---
TWO VIEW CHEST: PA AND LATERAL VIEWS 10/12/18 INDICATIONS: Respiratory distress. COMPARISON: 09/11/18. Cardiomegaly. Bilateral effusions and bibasilar atelectasis or infiltrates. Mild vascular congestion. IMPRESSION: Above congestive findings with bilateral effusions, not significantly changed from 09/11/18. POS: [facility]
--- NOTE | 2018-10-12 13:27 | PRG ---
DATE OF SERVICE: 10/12/2018 SUBJECTIVE: Ms. Cabrera is doing the same. Denies any complaints. She did not like her lunch. Apparently, she had some tachypnea and some shortness of breath this morning when nursing took her to the bathroom. Her oxygen saturation remained stable at 92 on room air. Nursing felt they heard some congestion. Ordered a chest x-ray, BMP, and BNP. Her sodium is 139, potassium 3.6, BUN and creatinine are 16 and 0.82, and BNP is slightly elevated at 129. Chest x-ray report is pending, but on reviewing the images, minimal blunting of the left costophrenic angle. I do not see any confluent airspace disease. Poor inspiratory film. We will wait for final report. OBJECTIVE: VITAL SIGNS: She is afebrile. Heart rate 66, respirations 18, oxygen saturation 92% on room air, blood pressure was 174/73 this morning. CARDIOVASCULAR: S1 and S2 plus. RESPIRATORY: Normal vesicular breath sounds with decreased air entry in the bases. ABDOMEN: Soft and nontender. Bowel sounds heard in all quadrants. EXTREMITIES: Without cyanosis or clubbing. Trace edema. CENTRAL NERVOUS SYSTEM: Awake and responsive. Generalized weakness. IMPRESSION: 1. T11 compression fracture. 2. Atrial fibrillation. 3. Hypertension. 4. Dyslipidemia. 5. Osteoarthritis. 6. Atherosclerotic vascular disease. 7. Resolved acute hypoxemic respiratory failure. PLAN: 1. Continue current medications. 2. Nutritional support. 3. Deep venous thrombosis prophylaxis - the patient is on Eliquis. 4. Decubitus precautions. 5. Spinal precautions. 6. Physical therapy. 7. The patient does complain of her allergies flaring up, so we will start her on Claritin. Job ID: [id number]
[2018-10-12] MEDS: Loratadine 10 MG TAB PO PRN (15:10)
[2018-10-12] MEDS: Lidocaine Patch Removal 1 EACH TOP SCH (21:30)
[2018-10-12] MEDS: Montelukast Sodium 10 mg Tablet PO SCH (21:49)
[2018-10-12] MEDS: Digoxin 0.125 MG TAB PO SCH (21:49)
[2018-10-13] MEDS: Lidocaine 5% Patch TD SCH (08:45)
[2018-10-13] MEDS: HYDROcodone/Acetaminophen 5/325 mg Tablet PO PRN ×3 (08:52→20:36)
[2018-10-13] MEDS: Gabapentin 300 MG CAP PO SCH ×3 (08:54→20:38)
[2018-10-13] MEDS: Saccharomyces boulardii 250 MG CAP PO SCH (08:54)
[2018-10-13] MEDS: Polyethylene Glycol 3350 17 GM Packet PO SCH (08:54)
[2018-10-13] MEDS: Acetaminophen 325 MG TAB PO SCH ×3 (08:54→20:36)
[2018-10-13] MEDS: Atorvastatin Calcium 40 MG TAB PO SCH (08:54)
[2018-10-13] MEDS: Apixaban 2.5 MG TAB PO SCH ×2 (08:56→20:39)
[2018-10-13] MEDS: hydrALAZINE 25 MG TAB PO SCH ×3 (08:56→20:38)
[2018-10-13] MEDS: Losartan 25 MG TAB PO SCH (08:57)
[2018-10-13] MEDS: cloNIDine 0.1 MG TAB PO SCH ×3 (08:58→20:39)
[2018-10-13] MEDS: Amlodipine 5 MG TAB PO SCH (08:59)
--- NOTE | 2018-10-13 14:18 | PRG ---
DATE OF SERVICE: 10/13/2018 SUBJECTIVE: Ms. Cabrera is doing the same. Denies any complaints. Tolerating her p.o. intake. Denies any chest pain or shortness of breath. Pain is improving. OBJECTIVE: VITAL SIGNS: She is afebrile. Heart rate 72, respirations 18, oxygen saturation 94% on room air, blood pressure 168/73. CARDIOVASCULAR: Irregularly irregular. RESPIRATORY: Normal vesicular breath sounds. ABDOMEN: Soft, nontender. Bowel sounds heard in all quadrants. EXTREMITIES: Trace edema. CENTRAL NERVOUS SYSTEM: Awake and responsive. Generalized weakness. IMPRESSION: 1. T11 compression fracture. 2. Atrial fibrillation. 3. Hypertension. 4. Dyslipidemia. 5. Osteoarthritis. 6. Resolved acute hypoxemic respiratory failure. 7. Atherosclerotic vascular disease with severe mesenteric artery stenosis and bilateral renal artery stenosis. PLAN: 1. Continue current medications. 2. Spinal precautions. 3. Nutritional support. 4. Pain control. 5. Routine laboratory values. 6. DVT prophylaxis - the patient is on Eliquis. 7. Decubitus precautions. 8. Therapy. 9. Discussed with the patient and nursing in detail. All questions answered. Job ID: [id number]
[2018-10-13] MEDS: Loratadine 10 MG TAB PO PRN (15:01)
[2018-10-13] MEDS: Montelukast Sodium 10 mg Tablet PO SCH (20:38)
[2018-10-13] MEDS: Digoxin 0.125 MG TAB PO SCH (20:38)
[2018-10-13] MEDS: Lidocaine Patch Removal 1 EACH TOP SCH (20:39)
[2018-10-14] MEDS: Lidocaine 5% Patch TD SCH (08:15)
[2018-10-14] MEDS: HYDROcodone/Acetaminophen 5/325 mg Tablet PO PRN ×3 (08:16→20:19)
[2018-10-14] MEDS: Gabapentin 300 MG CAP PO SCH ×3 (08:16→20:19)
[2018-10-14] MEDS: Saccharomyces boulardii 250 MG CAP PO SCH (08:19)
[2018-10-14] MEDS: Polyethylene Glycol 3350 17 GM Packet PO SCH (08:19)
[2018-10-14] MEDS: Atorvastatin Calcium 40 MG TAB PO SCH (08:19)
[2018-10-14] MEDS: Apixaban 2.5 MG TAB PO SCH ×2 (08:20→20:19)
[2018-10-14] MEDS: hydrALAZINE 25 MG TAB PO SCH ×3 (08:20→20:19)
[2018-10-14] MEDS: Losartan 25 MG TAB PO SCH (08:21)
[2018-10-14] MEDS: Acetaminophen 325 MG TAB PO SCH ×3 (08:22→20:24)
[2018-10-14] MEDS: Amlodipine 5 MG TAB PO SCH (08:23)
[2018-10-14] MEDS: cloNIDine 0.1 MG TAB PO SCH ×3 (08:29→20:19)
[2018-10-14] MEDS: Loratadine 10 MG TAB PO PRN (15:36)
[2018-10-14] MEDS: Digoxin 0.125 MG TAB PO SCH (20:19)
[2018-10-14] MEDS: Montelukast Sodium 10 mg Tablet PO SCH (20:19)
[2018-10-14] MEDS: Lidocaine Patch Removal 1 EACH TOP SCH (20:24)
[2018-10-15] MEDS: HYDROcodone/Acetaminophen 5/325 mg Tablet PO PRN ×3 (08:31→20:52)
[2018-10-15] MEDS: Lidocaine 5% Patch TD SCH (08:31)
[2018-10-15] MEDS: Saccharomyces boulardii 250 MG CAP PO SCH (08:33)
[2018-10-15] MEDS: Acetaminophen 325 MG TAB PO SCH ×3 (08:33→20:58)
[2018-10-15] MEDS: hydrALAZINE 25 MG TAB PO SCH ×3 (08:35→20:51)
[2018-10-15] MEDS: Losartan 25 MG TAB PO SCH (08:35)
[2018-10-15] MEDS: Amlodipine 5 MG TAB PO SCH (08:35)
[2018-10-15] MEDS: Atorvastatin Calcium 40 MG TAB PO SCH (08:36)
[2018-10-15] MEDS: Apixaban 2.5 MG TAB PO SCH ×2 (08:36→20:52)
[2018-10-15] MEDS: cloNIDine 0.1 MG TAB PO SCH ×3 (08:36→20:51)
[2018-10-15] MEDS: Gabapentin 300 MG CAP PO SCH ×3 (08:36→20:52)
[2018-10-15] MEDS: Polyethylene Glycol 3350 17 GM Packet PO SCH (08:37)
--- NOTE | 2018-10-15 15:13 | PRG ---
DATE OF SERVICE: 10/15/2018 SUBJECTIVE: Ms. Cabrera is doing well except she is noticing increased pain on the right flank since last night. She states the pain medicines does help. She denies any unusual activity. Her family is in the room. OBJECTIVE: VITAL SIGNS: She is afebrile. Heart rate is 78, respirations 22, oxygen saturation 94% on 1 L, and blood pressure 133/67. CARDIOVASCULAR SYSTEM: S1 and S2 plus. RESPIRATORY SYSTEM: Normal vesicular breath sounds. ABDOMEN: Soft and nontender. Bowel sounds heard in all quadrants. EXTREMITIES: Without cyanosis or clubbing. Trace edema. CENTRAL NERVOUS SYSTEM: Awake and responsive. Generalized weakness. IMPRESSION: 1. T11 compression fracture. 2. Atrial fibrillation. 3. Hypertension. 4. Dyslipidemia. 5. Osteoarthritis. 6. Dysphagia. 7. Atherosclerotic vascular disease. PLAN: 1. Continue current medications. 2. Add hydrochlorothiazide 25 mg p.o. daily due to worsening lower extremity edema. 3. Heart healthy diet with aspiration precautions. 4. DVT prophylaxis - the patient is on Eliquis. 5. Decubitus precautions. 6. Spinal precautions. 7. Continue physical therapy. 8. Routine laboratory values. 9. Discussed with the patient and family in detail. All questions answered. Job ID: [id number]
[2018-10-15] MEDS: Montelukast Sodium 10 mg Tablet PO SCH (20:51)
[2018-10-15] MEDS: Digoxin 0.125 MG TAB PO SCH (20:51)
[2018-10-15] MEDS: Lidocaine Patch Removal 1 EACH TOP SCH (20:54)
[2018-10-16] MEDS: Lidocaine 5% Patch TD SCH (08:09)
[2018-10-16] MEDS: HYDROcodone/Acetaminophen 5/325 mg Tablet PO PRN ×3 (08:09→20:15)
[2018-10-16] MEDS: Acetaminophen 325 MG TAB PO SCH ×3 (08:10→20:49)
[2018-10-16] MEDS: Hydrochlorothiazide 25 MG TAB PO SCH (08:11)
[2018-10-16] MEDS: hydrALAZINE 25 MG TAB PO SCH ×3 (08:11→20:16)
[2018-10-16] MEDS: Gabapentin 300 MG CAP PO SCH ×3 (08:11→20:16)
[2018-10-16] MEDS: cloNIDine 0.1 MG TAB PO SCH ×3 (08:11→20:14)
[2018-10-16] MEDS: Saccharomyces boulardii 250 MG CAP PO SCH (08:11)
[2018-10-16] MEDS: Losartan 25 MG TAB PO SCH (08:11)
[2018-10-16] MEDS: Atorvastatin Calcium 40 MG TAB PO SCH (08:11)
[2018-10-16] MEDS: Apixaban 2.5 MG TAB PO SCH ×2 (08:12→20:15)
[2018-10-16] MEDS: Amlodipine 5 MG TAB PO SCH (08:12)
[2018-10-16] MEDS: Polyethylene Glycol 3350 17 GM Packet PO SCH (08:15)
--- NOTE | 2018-10-16 15:42 | PRG ---
DATE OF SERVICE: 10/16/2018 DISCUSSION: Ms. Cabrera is doing well. Denies any complaints. Pain in the right flank is much improved. No family at bedside. OBJECTIVE: VITAL SIGNS: She is afebrile. Heart rate 81, respirations 20, oxygen saturation 92% on room air, and blood pressure 163/71. CARDIOVASCULAR SYSTEM: S1 and S2 plus. RESPIRATORY SYSTEM: Normal vesicular breath sounds. ABDOMEN: Soft and nontender. Bowel sounds heard in all quadrants. EXTREMITIES: Without cyanosis or clubbing. CENTRAL NERVOUS SYSTEM: Awake and responsive. Generalized weakness. Otherwise nonfocal. IMPRESSION: 1. T11 compression fracture. 2. Atrial fibrillation, rate controlled. 3. Hypertension, fluctuating. 4. Dyslipidemia. 5. Osteoarthritis. 6. Atherosclerotic vascular disease. 7. Resolved acute hypoxemic respiratory failure. 8. Dysphagia - refuses thickened liquids. PLAN: 1. Continue current medications. 2. Nutritional support with aspiration precautions. 3. DVT prophylaxis - the patient is on Eliquis. 4. Decubitus precautions. 5. Stress ulcer prophylaxis. 6. Spinal precautions with TLSO brace. 7. Physical therapy. 8. Routine laboratory values. Job ID: [id number]
[2018-10-16] MEDS: Digoxin 0.125 MG TAB PO SCH (20:16)
[2018-10-16] MEDS: Lidocaine Patch Removal 1 EACH TOP SCH (20:16)
[2018-10-16] MEDS: Montelukast Sodium 10 mg Tablet PO SCH (20:16)
[2018-10-17] MEDS ORDERED: Ondansetron ODT 4 MG TAB PO PRN (09:10)
[2018-10-17] MEDS: Lidocaine 5% Patch TD SCH (09:16)
[2018-10-17] MEDS: Polyethylene Glycol 3350 17 GM Packet PO SCH (09:20)
[2018-10-17] MEDS: hydrALAZINE 25 MG TAB PO SCH ×3 (09:20→20:43)
[2018-10-17] MEDS: Saccharomyces boulardii 250 MG CAP PO SCH (09:20)
[2018-10-17] MEDS: Gabapentin 300 MG CAP PO SCH ×3 (09:30→20:43)
[2018-10-17] MEDS: Loratadine 10 MG TAB PO PRN (09:30)
[2018-10-17] MEDS: HYDROcodone/Acetaminophen 5/325 mg Tablet PO PRN ×3 (09:31→19:32)
[2018-10-17] MEDS: Apixaban 2.5 MG TAB PO SCH ×2 (09:31→20:44)
[2018-10-17] MEDS: Acetaminophen 325 MG TAB PO SCH ×3 (09:35→20:43)
[2018-10-17] MEDS: Atorvastatin Calcium 40 MG TAB PO SCH (09:36)
[2018-10-17] MEDS: Losartan 25 MG TAB PO SCH (09:37)
[2018-10-17] MEDS: cloNIDine 0.1 MG TAB PO SCH ×3 (09:37→20:44)
[2018-10-17] MEDS: Hydrochlorothiazide 25 MG TAB PO SCH (09:37)
[2018-10-17] MEDS: Amlodipine 5 MG TAB PO SCH (09:38)
[2018-10-17] MEDS: Digoxin 0.125 MG TAB PO SCH (20:43)
[2018-10-17] MEDS: Montelukast Sodium 10 mg Tablet PO SCH (20:44)
[2018-10-17] MEDS: Lidocaine Patch Removal 1 EACH TOP SCH (20:44)
[2018-10-18] MEDS: Amlodipine 5 MG TAB PO SCH (07:20)
[2018-10-18] MEDS: Acetaminophen 325 MG TAB PO SCH ×3 (07:20→20:20)
[2018-10-18] MEDS: cloNIDine 0.1 MG TAB PO SCH ×3 (07:21→20:21)
[2018-10-18] MEDS: Atorvastatin Calcium 40 MG TAB PO SCH (07:21)
[2018-10-18] MEDS: Apixaban 2.5 MG TAB PO SCH ×2 (07:21→20:22)
[2018-10-18] MEDS: hydrALAZINE 25 MG TAB PO SCH ×3 (07:22→20:21)
[2018-10-18] MEDS: Hydrochlorothiazide 25 MG TAB PO SCH (07:22)
[2018-10-18] MEDS: Gabapentin 300 MG CAP PO SCH ×3 (07:22→20:21)
[2018-10-18] MEDS: Losartan 25 MG TAB PO SCH (07:22)
[2018-10-18] MEDS: Saccharomyces boulardii 250 MG CAP PO SCH (07:23)
[2018-10-18] MEDS: Polyethylene Glycol 3350 17 GM Packet PO SCH (07:23)
[2018-10-18] MEDS: Lidocaine 5% Patch TD SCH (07:43)
[2018-10-18] MEDS: HYDROcodone/Acetaminophen 5/325 mg Tablet PO PRN ×3 (07:46→18:10)
--- NOTE | 2018-10-18 13:39 | PRG ---
DATE OF SERVICE: 10/14/2018 SUBJECTIVE: Ms. Cabrera is doing well. Denies any complaints. Tolerating her therapy. On and off pain in her right flank, but medicines are helping. No family at bedside. OBJECTIVE: VITAL SIGNS: She is afebrile. Heart rate is 90, respirations are 18, blood pressure is 149/70, and oxygen saturation is 93%. CARDIOVASCULAR: S1 and S2 plus. RESPIRATORY: Normal vesicular breath sounds. ABDOMEN: Soft, nontender. Bowel sounds heard in all quadrants. EXTREMITIES: Without cyanosis or clubbing. Trace edema. CENTRAL NERVOUS SYSTEM: Grossly nonfocal. IMPRESSION: 1. T11 compression fracture. 2. Atrial fibrillation. 3. Hypertension. 4. Dyslipidemia. 5. Deconditioning. PLAN: 1. Continue current medications. 2. Nutritional support. 3. Physical therapy. 4. Spinal precautions. 5. Routine laboratory values. 6. Pain control. Job ID: [id number]
--- NOTE | 2018-10-18 13:55 | PRG ---
DATE OF SERVICE: 10/18/2018 SUBJECTIVE: Ms. Cabrera is doing well. Denies any complaints. Does notice some leg swelling, but she does not want to wear CHANTELLE hose. She is on hydrochlorothiazide most likely related to her sitting in her wheelchair most of the time. OBJECTIVE: VITAL SIGNS: She is afebrile, heart rate 80, respirations 22, oxygen saturation 95% on room air, and blood pressure 151/63. CARDIOVASCULAR SYSTEM: S1 and S2 plus. RESPIRATORY SYSTEM: Normal vesicular breath sounds. ABDOMEN: Soft, nontender. Bowel sounds heard in all quadrants. EXTREMITIES: Without cyanosis or clubbing. Trace to 1+ edema. CENTRAL NERVOUS SYSTEM: Awake and responsive. Generalized weakness. IMPRESSION: 1. Atrial fibrillation. 2. Hypertension. 3. Dyslipidemia. 4. T11 compression fracture. 5. Atherosclerotic vascular disease with mesenteric and bilateral renal artery stenosis. 6. Dysphagia. 7. Lower extremity edema, likely due to venous insufficiency and her posture. PLAN: 1. Continue current medications. 2. Heart-healthy diet. 3. Spinal precautions. 4. DVT prophylaxis-the patient is on Eliquis. 5. Decubitus precautions. 6. Stress ulcer prophylaxis. 7. Physical therapy. 8. Routine laboratory values. Job ID: [id number]
[2018-10-18] MEDS: Montelukast Sodium 10 mg Tablet PO SCH (20:21)
[2018-10-18] MEDS: Digoxin 0.125 MG TAB PO SCH (20:22)
[2018-10-18] MEDS: Lidocaine Patch Removal 1 EACH TOP SCH (20:22)
[2018-10-19] MEDS: HYDROcodone/Acetaminophen 5/325 mg Tablet PO PRN ×2 (09:20→16:07)
[2018-10-19] MEDS: Polyethylene Glycol 3350 17 GM Packet PO SCH (09:20)
[2018-10-19] MEDS: Lidocaine 5% Patch TD SCH (09:20)
[2018-10-19] MEDS: Acetaminophen 325 MG TAB PO SCH ×3 (09:26→20:38)
[2018-10-19] MEDS: hydrALAZINE 25 MG TAB PO SCH ×3 (09:26→20:40)
[2018-10-19] MEDS: Hydrochlorothiazide 25 MG TAB PO SCH (09:27)
[2018-10-19] MEDS: Gabapentin 300 MG CAP PO SCH ×3 (09:27→20:40)
[2018-10-19] MEDS: Apixaban 2.5 MG TAB PO SCH ×2 (09:27→20:38)
[2018-10-19] MEDS: Atorvastatin Calcium 40 MG TAB PO SCH (09:28)
[2018-10-19] MEDS: Saccharomyces boulardii 250 MG CAP PO SCH (09:28)
[2018-10-19] MEDS: cloNIDine 0.1 MG TAB PO SCH ×3 (09:29→20:39)
[2018-10-19] MEDS: Losartan 25 MG TAB PO SCH (09:29)
[2018-10-19] MEDS: Amlodipine 5 MG TAB PO SCH (09:30)
--- NOTE | 2018-10-19 14:54 | PRG ---
DATE OF SERVICE: 10/19/2018 SUBJECTIVE: Ms. Cabrera is doing well. She is improving with therapy. Pain is improving. Noticing about 1+ edema to lower extremity. She is on hydrochlorothiazide. She does not want pressure stockings. She is agreeable to switch it to Lasix. OBJECTIVE: VITAL SIGNS: She is afebrile, heart rate 80, respirations 22, oxygen saturation 93%, and blood pressure 167/72. CARDIOVASCULAR SYSTEM: S1 and S2 plus. RESPIRATORY SYSTEM: Normal vesicular breath sounds. ABDOMEN: Soft and nontender. Bowel sounds heard in all quadrants. EXTREMITIES: 1+ edema. CENTRAL NERVOUS SYSTEM: Awake and responsive. Generalized weakness. IMPRESSION: 1. T11 compression fracture. 2. Lower extremity edema. 3. Hypertension. 4. Dyslipidemia. 5. Atrial fibrillation. 6. Dysphagia. 7. Fluctuating hypoxemic respiratory failure. PLAN: 1. Continue to titrate oxygen. 2. Switch hydrochlorothiazide to Lasix 40 mg daily and potassium 20 mg daily. 3. Continue spinal precautions. 4. Nutritional support. 5. Aspiration precautions. 6. Physical therapy. 7. Check laboratory values in the morning. Job ID: [id number]
[2018-10-19] MEDS: Loratadine 10 MG TAB PO PRN (16:05)
[2018-10-19] MEDS: Digoxin 0.125 MG TAB PO SCH (20:39)
[2018-10-19] MEDS: Lidocaine Patch Removal 1 EACH TOP SCH (20:41)
[2018-10-19] MEDS: Montelukast Sodium 10 mg Tablet PO SCH (20:41)
[2018-10-20 05:21] LABS: #Basophils 0.1 thou/uL (0.0-0.2); #Eosinphils 0.1 thou/uL (0.0-0.7); #Lymphocytes 1.7 thou/uL (1.20-3.40); #Monocytes 0.7 thou/uL (0.11-0.59); #Neutrophils 4.7 thou/uL (1.40-6.50); %Eosinophils 1.9 % (0.0-10.0); %Lymphocytes 23.8 % (21.0-51.0); %Neutrophils 64.3 % (42.0-75.0); Hemoglobin 10.5 g/dL (12.0-16.0); Mean Corpuscular HGB CONC 31.4 g/dL (32.0-36.0); Mean Corpuscular Hemoglobin 28.9 pg (27.0-31.0); Mean Corpuscular Volume 91.8 fL (78.0-98.0); Mean Platelet Volume 7.7 fL (7.4-10.4); Platelet Count 249 thou/uL (130-400); RBC Distribution Width 13.1 % (11.5-14.5); Red Blood Cell (RBC) Count 3.64 mill/uL (4.20-5.40); White Blood Cell (WBC) Count 7.3 thou/uL (4.8-10.8)
[2018-10-20 05:40] LABS: Anion Gap 13 mmol/L (10-20); BUN (Urea Nitrogen) 18 mg/dL (9.8-20.1); Calc. Creatinine Clearance 43 mL/min (70-130); Calcium 10.2 mg/dL (7.8-10.44); Carbon Dioxide 31 mmol/L (23-31); Chloride 99 mmol/L (98-107); Estimated GFR-MDRD 61; Glucose 105 mg/dL (83-110); Potassium 3.8 mmol/L (3.5-5.1); Sodium 139 mmol/L (136-145)
[2018-10-20] MEDS: Furosemide 40 MG TAB PO SCH (08:16)
[2018-10-20] MEDS: Lidocaine 5% Patch TD SCH (08:28)
[2018-10-20] MEDS: Polyethylene Glycol 3350 17 GM Packet PO SCH (09:42)
[2018-10-20] MEDS: Apixaban 2.5 MG TAB PO SCH ×2 (09:42→20:56)
[2018-10-20] MEDS: Gabapentin 300 MG CAP PO SCH ×3 (09:43→20:57)
[2018-10-20] MEDS: Losartan 25 MG TAB PO SCH (09:43)
[2018-10-20] MEDS: cloNIDine 0.1 MG TAB PO SCH ×3 (09:44→20:58)
[2018-10-20] MEDS: hydrALAZINE 25 MG TAB PO SCH ×3 (09:44→20:57)
[2018-10-20] MEDS: Amlodipine 5 MG TAB PO SCH (09:49)
[2018-10-20] MEDS: Acetaminophen 325 MG TAB PO SCH ×3 (09:49→20:57)
[2018-10-20] MEDS: Atorvastatin Calcium 40 MG TAB PO SCH (09:49)
[2018-10-20] MEDS: Saccharomyces boulardii 250 MG CAP PO SCH (09:49)
[2018-10-20] MEDS: HYDROcodone/Acetaminophen 5/325 mg Tablet PO PRN ×2 (11:38→15:48)
--- NOTE | 2018-10-20 14:54 | PRG ---
DATE OF SERVICE: 10/20/2018 SUBJECTIVE: Ms. Cabrera is in a bad mood today. She is getting frustrated with the brace. She denies any other concerns or questions. OBJECTIVE: VITAL SIGNS: She is afebrile. Heart rate 77, respirations 22, oxygen saturation 94% on 2 L, and blood pressure 146/67. CARDIOVASCULAR: S1-S2 plus. RESPIRATORY: Normal vesicular breath sounds. ABDOMEN: Soft, nontender. Bowel sounds heard in all quadrants. EXTREMITIES: Still with 1+ edema. CENTRAL NERVOUS SYSTEM: Awake and responsive. Generalized weakness. LABORATORY DATA: White count is 7.3, H and H are 10.5 and 33.4. Sodium 139, potassium 3.8, BUN and creatinine are 18 and 0.87. IMPRESSION: 1. Lower extremity edema, likely due to sitting in her wheelchair all day. 2. Hypertension. 3. Dyslipidemia. 4. Osteoarthritis. 5. Atrial fibrillation. 6. T11 compression fracture. PLAN: 1. Continue current medications. 2. Nutritional support with heart-healthy diet. 3. Aspiration precautions. 4. We will check with occupational therapy to see if they have a different type of TLSO brace. 5. Discussed with the patient and nursing in detail. All questions answered. 6. Therapy as tolerated. 7. Routine laboratory values. Job ID: [id number]
[2018-10-20] MEDS: Loratadine 10 MG TAB PO PRN (15:48)
[2018-10-20] MEDS: Digoxin 0.125 MG TAB PO SCH (20:57)
[2018-10-20] MEDS: Montelukast Sodium 10 mg Tablet PO SCH (20:57)
[2018-10-20] MEDS: Lidocaine Patch Removal 1 EACH TOP SCH (20:58)
[2018-10-21] MEDS: Lidocaine 5% Patch TD SCH (07:55)
[2018-10-21] MEDS: Furosemide 40 MG TAB PO SCH (07:55)
[2018-10-21] MEDS: Apixaban 2.5 MG TAB PO SCH ×2 (08:59→20:56)
[2018-10-21] MEDS: Gabapentin 300 MG CAP PO SCH ×3 (08:59→20:57)
[2018-10-21] MEDS: Polyethylene Glycol 3350 17 GM Packet PO SCH (08:59)
[2018-10-21] MEDS: hydrALAZINE 25 MG TAB PO SCH ×3 (09:00→20:57)
[2018-10-21] MEDS: Atorvastatin Calcium 40 MG TAB PO SCH (09:01)
[2018-10-21] MEDS: Acetaminophen 325 MG TAB PO SCH ×3 (09:01→20:57)
[2018-10-21] MEDS: cloNIDine 0.1 MG TAB PO SCH ×3 (09:02→20:57)
[2018-10-21] MEDS: Saccharomyces boulardii 250 MG CAP PO SCH (09:02)
[2018-10-21] MEDS: Losartan 25 MG TAB PO SCH (09:02)
[2018-10-21] MEDS: Amlodipine 5 MG TAB PO SCH (09:03)
[2018-10-21] MEDS: HYDROcodone/Acetaminophen 5/325 mg Tablet PO PRN ×3 (09:17→20:55)
[2018-10-21 10:56] VITALS: BMI 23.6
--- NOTE | 2018-10-21 11:29 | PRG ---
DATE OF SERVICE: 10/21/2018 SUBJECTIVE: Ms. Cabrera is doing the same. Denies any complaints. Discussed with therapy and she is getting close to reaching maximum improvement. Advised nursing to schedule her with Neurosurgery as she was supposed to follow up in six weeks. Occupational Therapy also stated that they really cannot get the different TLSO brace and it is probably best that it comes from the neurosurgeon. OBJECTIVE: VITAL SIGNS: She is afebrile. Heart rate 67, respirations 16, oxygen saturation 96% on room air, and blood pressure 146/65. CARDIOVASCULAR: S1 and S2 plus. RESPIRATORY: Normal vesicular breath sounds. ABDOMEN: Soft, nontender. Bowel sounds heard in all quadrants. EXTREMITIES: Without cyanosis or clubbing. 1+ edema. CENTRAL NERVOUS SYSTEM: Awake and responsive. Generalized weakness. IMPRESSION: 1. T11 compression fracture. 2. Atrial fibrillation. 3. Hypertension. 4. Dyslipidemia. 5. Atherosclerotic vascular disease. PLAN: 1. Continue current medications. 2. Spinal precautions. 3. Discharge planning. 4. Schedule appointment with Neurosurgery. 5. Titrate oxygen. 6. Heart healthy diet. 7. Monitor heart rate and rhythm. 8. Discussed with the patient and nursing in detail. All questions answered. Job ID: [id number]
[2018-10-21] MEDS: Digoxin 0.125 MG TAB PO SCH (20:57)
[2018-10-21] MEDS: Montelukast Sodium 10 mg Tablet PO SCH (20:57)
[2018-10-21] MEDS: Lidocaine Patch Removal 1 EACH TOP SCH (20:58)
[2018-10-22] MEDS: HYDROcodone/Acetaminophen 5/325 mg Tablet PO PRN ×3 (08:51→21:35)
[2018-10-22] MEDS: Lidocaine 5% Patch TD SCH (08:52)
[2018-10-22] MEDS: Polyethylene Glycol 3350 17 GM Packet PO SCH (08:53)
[2018-10-22] MEDS: Losartan 25 MG TAB PO SCH (08:53)
[2018-10-22] MEDS: Saccharomyces boulardii 250 MG CAP PO SCH (08:53)
[2018-10-22] MEDS: cloNIDine 0.1 MG TAB PO SCH ×3 (08:54→21:36)
[2018-10-22] MEDS: Atorvastatin Calcium 40 MG TAB PO SCH (08:54)
[2018-10-22] MEDS: Amlodipine 5 MG TAB PO SCH (08:54)
[2018-10-22] MEDS: Apixaban 2.5 MG TAB PO SCH ×2 (08:55→21:36)
[2018-10-22] MEDS: Furosemide 40 MG TAB PO SCH (08:55)
[2018-10-22] MEDS: Gabapentin 300 MG CAP PO SCH ×3 (08:55→21:35)
[2018-10-22] MEDS: hydrALAZINE 25 MG TAB PO SCH ×3 (08:55→21:36)
[2018-10-22] MEDS: Acetaminophen 325 MG TAB PO SCH ×3 (08:55→21:37)
--- NOTE | 2018-10-22 14:47 | PRG ---
DATE OF SERVICE: 10/22/2018 SUBJECTIVE: Ms. Cabrera is up in bed and sat up in chair and denies any complaints. This is her 88th birthday. Her friends are visiting. She is hoping to see Neurosurgery next week and hopefully get out of the brace. No concerns or questions discussed with nursing. OBJECTIVE: VITAL SIGNS: She is afebrile, heart rate 70, respirations 18, oxygen saturation 97% on 2 L, and blood pressure 138/66. CARDIOVASCULAR SYSTEM: S1 and S2 plus. RESPIRATORY SYSTEM: Normal vesicular breath sounds. ABDOMEN: Soft and nontender. Bowel sounds heard in all quadrants. EXTREMITIES: Without cyanosis or clubbing. 1+ edema. CENTRAL NERVOUS SYSTEM: Awake and responsive. Generalized weakness. IMPRESSION: 1. T11 compression fracture. 2. Atrial fibrillation. 3. Hypertension. 4. Dyslipidemia. 5. Atherosclerotic vascular disease. 6. Lower extremity edema. 7. Mild dysphagia. PLAN: 1. Continue current medications. 2. Heart healthy diet. 3. DVT prophylaxis - the patient is on Eliquis. 4. Spinal precautions with TLSO brace. 5. Appointment with Neurosurgery next week. 6. Titrate oxygen. 7. Continue physical therapy. 8. Routine laboratory values. 9. Discussed with the patient and family in detail. All questions answered. Job ID: [id number]
[2018-10-22] MEDS: Digoxin 0.125 MG TAB PO SCH (21:34)
[2018-10-22] MEDS: Montelukast Sodium 10 mg Tablet PO SCH (21:34)
[2018-10-22] MEDS: Lidocaine Patch Removal 1 EACH TOP SCH (21:37)
[2018-10-23] MEDS: Furosemide 40 MG TAB PO SCH (07:33)
[2018-10-23] MEDS: Saccharomyces boulardii 250 MG CAP PO SCH (08:44)
[2018-10-23] MEDS: hydrALAZINE 25 MG TAB PO SCH ×3 (08:44→21:58)
[2018-10-23] MEDS: Atorvastatin Calcium 40 MG TAB PO SCH (08:45)
[2018-10-23] MEDS: Acetaminophen 325 MG TAB PO SCH ×3 (08:45→22:14)
[2018-10-23] MEDS: cloNIDine 0.1 MG TAB PO SCH ×3 (08:46→21:57)
[2018-10-23] MEDS: Gabapentin 300 MG CAP PO SCH ×3 (08:46→21:58)
[2018-10-23] MEDS: Losartan 25 MG TAB PO SCH (08:46)
[2018-10-23] MEDS: Apixaban 2.5 MG TAB PO SCH ×2 (08:47→21:57)
[2018-10-23] MEDS: Amlodipine 5 MG TAB PO SCH (08:47)
[2018-10-23] MEDS: HYDROcodone/Acetaminophen 5/325 mg Tablet PO PRN ×4 (08:48→21:57)
[2018-10-23] MEDS: Polyethylene Glycol 3350 17 GM Packet PO SCH (08:55)
[2018-10-23] MEDS: Lidocaine 5% Patch TD SCH (08:56)
--- NOTE | 2018-10-23 15:54 | PRG ---
DATE OF SERVICE: 10/23/2018 SUBJECTIVE: Ms. Cabrera is doing well. She had a good birthday yesterday. Denies any concerns. She is looking forward to seeing Neurosurgery next week and hopefully get off the brace. OBJECTIVE: VITAL SIGNS: She is afebrile, heart rate 68, respirations 20, oxygen saturation 96% on 2 L, and blood pressure 160/73. CARDIOVASCULAR SYSTEM: S1 and S2 plus. RESPIRATORY SYSTEMS: Normal vesicular breath sounds. ABDOMEN: Soft and nontender. Bowel sounds heard in all quadrants. EXTREMITIES: Without cyanosis or clubbing. Still with 1 to 2+ edema. CENTRAL NERVOUS SYSTEM: Awake and responsive. Generalized weakness. IMPRESSION: 1. T11 compression fracture. 2. Hypertension. 3. Dyslipidemia. 4. Atrial fibrillation. 5. Atherosclerotic vascular disease. 6. Acute hypoxemic respiratory failure. 7. Dysphagia. PLAN: 1. Continue current medications. 2. Heart-healthy diet with aspiration precautions. 3. Titrate oxygen as tolerated. 4. Spinal precautions. 5. Continue Lasix. 6. Recheck laboratory values in the morning. 7. Schedule appointment with Neurosurgery. 8. Discharge planning. Job ID: [id number]
[2018-10-23] MEDS: Montelukast Sodium 10 mg Tablet PO SCH (21:57)
[2018-10-23] MEDS: Digoxin 0.125 MG TAB PO SCH (21:59)
[2018-10-23] MEDS: Lidocaine Patch Removal 1 EACH TOP SCH (22:14)
[2018-10-24 05:50] LABS: #Basophils 0.1 thou/uL (0.0-0.2); #Eosinphils 0.2 thou/uL (0.0-0.7); #Lymphocytes 2.3 thou/uL (1.20-3.40); #Monocytes 0.6 thou/uL (0.11-0.59); #Neutrophils 2.6 thou/uL (1.40-6.50); %Basophils 1.9 % (0.0-1.0); %Eosinophils 4.2 % (0.0-10.0); %Lymphocytes 39.8 % (21.0-51.0); %Neutrophils 44.2 % (42.0-75.0); Hemoglobin 10.1 g/dL (12.0-16.0); Mean Corpuscular HGB CONC 31.1 g/dL (32.0-36.0); Mean Corpuscular Hemoglobin 28.8 pg (27.0-31.0); Mean Corpuscular Volume 92.6 fL (78.0-98.0); Platelet Count 229 thou/uL (130-400); White Blood Cell (WBC) Count 5.9 thou/uL (4.8-10.8)
[2018-10-24 05:54] LABS: Anion Gap 12 mmol/L (10-20); BUN (Urea Nitrogen) 18 mg/dL (9.8-20.1); Calc. Creatinine Clearance 41 mL/min (70-130); Calcium 9.6 mg/dL (7.8-10.44); Carbon Dioxide 34 mmol/L (23-31); Chloride 99 mmol/L (98-107); Estimated GFR-MDRD 61; Glucose 96 mg/dL (83-110); Potassium 3.9 mmol/L (3.5-5.1); Sodium 141 mmol/L (136-145)
[2018-10-24] MEDS: HYDROcodone/Acetaminophen 5/325 mg Tablet PO PRN ×4 (07:54→22:01)
[2018-10-24] MEDS: Furosemide 40 MG TAB PO SCH (07:54)
[2018-10-24] MEDS: Lidocaine 5% Patch TD SCH (08:00)
[2018-10-24] MEDS: Polyethylene Glycol 3350 17 GM Packet PO SCH (08:59)
[2018-10-24] MEDS: Acetaminophen 325 MG TAB PO SCH ×3 (09:01→22:04)
[2018-10-24] MEDS: Apixaban 2.5 MG TAB PO SCH ×2 (09:02→22:02)
[2018-10-24] MEDS: Saccharomyces boulardii 250 MG CAP PO SCH (09:03)
[2018-10-24] MEDS: Atorvastatin Calcium 40 MG TAB PO SCH (09:03)
[2018-10-24] MEDS: hydrALAZINE 25 MG TAB PO SCH ×3 (09:04→22:03)
[2018-10-24] MEDS: Gabapentin 300 MG CAP PO SCH ×3 (09:04→22:05)
[2018-10-24] MEDS: Losartan 25 MG TAB PO SCH (09:05)
[2018-10-24] MEDS: Amlodipine 5 MG TAB PO SCH (09:08)
[2018-10-24] MEDS: cloNIDine 0.1 MG TAB PO SCH ×3 (09:09→22:03)
--- NOTE | 2018-10-24 12:46 | PRG ---
DATE OF SERVICE: 10/24/2018 SUBJECTIVE: Ms. Cabrera is doing the same. Denies any complaints. Ambulating with therapy. Still is not compliant with her incentive spirometry or trying to take a deep breath, so requires oxygen. She has an appointment for followup with Neurosurgery on Wednesday and we will know if she can take off her brace or continue for another 6 weeks. Plan is for her to go to the retirement if she needs to be on the brace. OBJECTIVE: VITAL SIGNS: She is afebrile. Heart rate is 72, respirations 20, oxygen saturation 96% on 2 L, and blood pressure 161/71. CARDIOVASCULAR SYSTEM: S1 and S2 plus. RESPIRATORY SYSTEM: Normal vesicular breath sounds. ABDOMEN: Soft and nontender. Bowel sounds heard in all quadrants. EXTREMITIES: Without cyanosis or clubbing. 1+ edema. CENTRAL NERVOUS SYSTEM: Awake and responsive. Generalized weakness. LABORATORY VALUES: Done today show a white count of 5.9, hemoglobin and hematocrit are 10.1 and 32.4. Sodium 141, potassium 3.9, BUN and creatinine are 18 and 0.88. IMPRESSION: 1. T11 compression fracture. 2. Atrial fibrillation, rate controlled. 3. Hypertension, reasonable control. 4. Dyslipidemia. 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 6. Acute hypoxemic respiratory failure, likely due to the patient not being compliant with her incentive spirometry. 7. Lower extremity edema due to combination of venous insufficiency and sitting on her wheelchair all day. 8. Dysphagia. The patient refuses nectar thick liquids. PLAN: 1. Continue current medications. 2. Heart healthy diet. 3. Monitor heart rate and rhythm. 4. Continue spinal precautions. 5. Follow up with Dr. Shepherd on Wednesday. 6. Continue Lasix. 7. Physical therapy. 8. Routine laboratory values. 9. Titrate oxygen. 10. Reinforce compliance with incentive spirometry. Job ID: [id number]
[2018-10-24] MEDS: Montelukast Sodium 10 mg Tablet PO SCH (22:03)
[2018-10-24] MEDS: Digoxin 0.125 MG TAB PO SCH (22:03)
[2018-10-24] MEDS: Lidocaine Patch Removal 1 EACH TOP SCH (22:05)
[2018-10-25] MEDS: hydrALAZINE 25 MG TAB PO SCH ×3 (08:18→20:51)
[2018-10-25] MEDS: Amlodipine 5 MG TAB PO SCH (08:18)
[2018-10-25] MEDS: Apixaban 2.5 MG TAB PO SCH ×2 (08:18→20:50)
[2018-10-25] MEDS: Gabapentin 300 MG CAP PO SCH ×3 (08:18→20:51)
[2018-10-25] MEDS: Furosemide 40 MG TAB PO SCH (08:18)
[2018-10-25] MEDS: Atorvastatin Calcium 40 MG TAB PO SCH (08:18)
[2018-10-25] MEDS: cloNIDine 0.1 MG TAB PO SCH ×3 (08:18→20:51)
[2018-10-25] MEDS: Acetaminophen 325 MG TAB PO SCH ×3 (08:19→20:51)
[2018-10-25] MEDS: Losartan 25 MG TAB PO SCH (08:19)
[2018-10-25] MEDS: Saccharomyces boulardii 250 MG CAP PO SCH (08:19)
[2018-10-25] MEDS: Lidocaine 5% Patch TD SCH (08:19)
[2018-10-25] MEDS: Polyethylene Glycol 3350 17 GM Packet PO SCH (08:20)
[2018-10-25] MEDS: HYDROcodone/Acetaminophen 5/325 mg Tablet PO PRN ×3 (08:20→18:21)
--- NOTE | 2018-10-25 13:15 | PRG ---
DATE OF SERVICE: 10/25/2018 SUBJECTIVE: Ms. Cabrera is up in her chair and denies any complaints. She states that she is trying to use her incentive spirometer and the maximum she has been able to blow as 500 mL. She is looking forward to a visit to Neurosurgery tomorrow, and hopefully, she is wishing they will take her off the brace. OBJECTIVE: VITAL SIGNS: She is afebrile. Heart rate 68, respirations 22, oxygen saturation 94% on 2 L, and blood pressure 138/67. CARDIOVASCULAR SYSTEM: S1 and S2 plus. RESPIRATORY SYSTEM: Normal vesicular breath sounds. ABDOMEN: Soft and nontender. Bowel sounds heard in all quadrants. EXTREMITIES: Without cyanosis or clubbing. 1+ edema. CENTRAL NERVOUS SYSTEM: Awake and responsive. Generalized weakness. IMPRESSION: 1. Atrial fibrillation. 2. Hypertension. 3. Dyslipidemia. 4. T11 compression fracture. 5. Dysphagia. 6. Lower extremity edema. 7. Atherosclerotic vascular disease. PLAN: 1. Continue current medications. 2. Nutritional support. 3. Heart healthy diet. 4. DVT prophylaxis with Eliquis. 5. Decubitus precautions. 6. Stress ulcer prophylaxis. 7. Monitor heart rate and rhythm. 8. Await neurosurgery input. Job ID: [id number]
[2018-10-25] MEDS: Montelukast Sodium 10 mg Tablet PO SCH (20:51)
[2018-10-25] MEDS: Digoxin 0.125 MG TAB PO SCH (20:51)
[2018-10-25] MEDS: Lidocaine Patch Removal 1 EACH TOP SCH (20:52)
[2018-10-26] MEDS: Furosemide 40 MG TAB PO SCH (07:58)
[2018-10-26] MEDS: Lidocaine 5% Patch TD SCH (07:59)
[2018-10-26] MEDS: HYDROcodone/Acetaminophen 5/325 mg Tablet PO PRN ×3 (08:04→18:16)
[2018-10-26] MEDS: Saccharomyces boulardii 250 MG CAP PO SCH (08:38)
[2018-10-26] MEDS: Acetaminophen 325 MG TAB PO SCH ×3 (08:38→20:53)
[2018-10-26] MEDS: hydrALAZINE 25 MG TAB PO SCH ×3 (08:38→20:54)
[2018-10-26] MEDS: Apixaban 2.5 MG TAB PO SCH ×2 (08:38→20:54)
[2018-10-26] MEDS: Gabapentin 300 MG CAP PO SCH ×3 (08:38→20:54)
[2018-10-26] MEDS: Polyethylene Glycol 3350 17 GM Packet PO SCH (08:38)
[2018-10-26] MEDS: Losartan 25 MG TAB PO SCH (08:39)
[2018-10-26] MEDS: Atorvastatin Calcium 40 MG TAB PO SCH (08:39)
[2018-10-26] MEDS: Amlodipine 5 MG TAB PO SCH (08:39)
[2018-10-26] MEDS: cloNIDine 0.1 MG TAB PO SCH ×3 (08:40→20:54)
--- NOTE | 2018-10-26 13:09 | PRG ---
DATE OF SERVICE: 10/26/2018 SUBJECTIVE: Ms. Cabrera is up in her chair and denies any complaints. Her family is in the room. She has an appointment with the neurosurgeon today to evaluate her thoracic spine compression fracture and see if she continues to need the TLSO brace. Again reinforced the importance of using the incentive spirometry. OBJECTIVE: VITAL SIGNS: She is afebrile. Heart rate 77, respirations 18, oxygen saturation 97% on 1.5 L, and blood pressure 150/66. CARDIOVASCULAR SYSTEM: S1 and S2 plus. RESPIRATORY SYSTEM: Normal vesicular breath sounds. ABDOMEN: Soft and nontender. Bowel sounds heard in all quadrants. EXTREMITIES: Without cyanosis or clubbing. 1+ edema. CENTRAL NERVOUS SYSTEM: Awake and responsive. Generalized weakness. IMPRESSION: 1. T11 compression fracture. 2. Atrial fibrillation. 3. Hypertension. 4. Dyslipidemia. 5. Lower extremity edema. 6. Atherosclerotic vascular disease with recent mesenteric ischemia. 7. Acute hypoxemic respiratory failure, on oxygen. 8. Dysphagia. The patient is refusing thickened liquids. PLAN: 1. Continue current medications. 2. Nutritional support. 3. Aspiration precautions. 4. DVT prophylaxis - the patient is on Eliquis. 5. Decubitus precautions. 6. Stress ulcer prophylaxis. 7. Await Dr. Shepherd's opinion. Job ID: [id number]
[2018-10-26] MEDS: Digoxin 0.125 MG TAB PO SCH (20:54)
[2018-10-26] MEDS: Montelukast Sodium 10 mg Tablet PO SCH (20:54)
[2018-10-26] MEDS: Lidocaine Patch Removal 1 EACH TOP SCH (20:54)
[2018-10-27 05:35] LABS: Hemoglobin 9.7 g/dL (12.0-16.0); Platelet Count 230 thou/uL (130-400)
[2018-10-27 07:42] VITALS: BP 162/70; TEMP 97.7
[2018-10-27] MEDS: Furosemide 40 MG TAB PO SCH (07:53)
[2018-10-27] MEDS: Lidocaine 5% Patch TD SCH (08:34)
[2018-10-27] MEDS: Apixaban 2.5 MG TAB PO SCH (08:37)
[2018-10-27] MEDS: Acetaminophen 325 MG TAB PO SCH (08:37)
[2018-10-27] MEDS: Amlodipine 5 MG TAB PO SCH (08:38)
[2018-10-27] MEDS: Gabapentin 300 MG CAP PO SCH (08:38)
[2018-10-27] MEDS: hydrALAZINE 25 MG TAB PO SCH (08:39)
[2018-10-27] MEDS: Atorvastatin Calcium 40 MG TAB PO SCH (08:39)
[2018-10-27] MEDS: cloNIDine 0.1 MG TAB PO SCH (08:39)
[2018-10-27] MEDS: Polyethylene Glycol 3350 17 GM Packet PO SCH (08:40)
[2018-10-27] MEDS: Losartan 25 MG TAB PO SCH (08:40)
[2018-10-27] MEDS: Saccharomyces boulardii 250 MG CAP PO SCH (08:40)
[2018-10-27] MEDS: HYDROcodone/Acetaminophen 5/325 mg Tablet PO PRN (08:44)
--- NOTE | 2018-10-27 14:34 | PRG ---
DATE OF SERVICE: 10/27/2018 SUBJECTIVE: Ms. Cabrera had a followup appointment with the neurosurgeon. They recommended her to wear the brace for at least another 6 weeks. Plan is to get her to the nursing facility. OBJECTIVE: VITAL SIGNS: She is afebrile, heart rate is 65, respirations are 15, oxygen saturation is 97%, and blood pressure is 162/70. CARDIOVASCULAR SYSTEM: S1 and S2 plus. RESPIRATORY SYSTEM: Normal vesicular breath sounds. ABDOMEN: Soft and nontender. Bowel sounds heard in all quadrants. EXTREMITIES: Without cyanosis or clubbing. 1+ edema. CENTRAL NERVOUS SYSTEM: Awake and responsive. Generalized weakness. LABORATORY DATA: H and H are 9.7 and 30.9. Sodium 141, potassium 3.9, and BUN and creatinine are 18 and 0.88. IMPRESSION: 1. Atrial fibrillation. 2. Hypertension. 3. Dyslipidemia. 4. T11 compression fracture. 5. Atherosclerotic vascular disease. 6. Acute hypoxemic respiratory failure. 7. Dysphagia. PLAN: 1. Discharge planning to transfer her to [facility]. 2. Continue current medications. 3. Spinal precautions. 4. Physical therapy. 5. Titrate oxygen. 6. Nutritional support. 7. Discussed with the patient's sister in detail. All questions answered. Job ID: [id number]
== END 2018-10-27 15:57 | DRG 559 ==
LOC: NAV ACUTE 15:27
PROVIDERS: ADMIT Internal Medicine; ATTEND Internal Medicine
DX: M48.54XD Collapsed vertebra, not elsewhere classified, thoracic region, subsequent encounter for fracture with routine healing (principal); K55.059 Acute (reversible) ischemia of intestine, part and extent unspecified; J96.01 Acute respiratory failure with hypoxia; K55.1 Chronic vascular disorders of intestine; I48.91 Unspecified atrial fibrillation; Z99.81 Dependence on supplemental oxygen; I70.1 Atherosclerosis of renal artery; D64.9 Anemia, unspecified; R13.10 Dysphagia, unspecified; N18.2 Chronic kidney disease, stage 2 (mild); I12.9 Hypertensive chronic kidney disease with stage 1 through stage 4 chronic kidney disease, or unspecified chronic kidney disease; E78.5 Hyperlipidemia, unspecified; Z90.49 Acquired absence of other specified parts of digestive tract; Z90.710 Acquired absence of both cervix and uterus; Z79.899 Other long term (current) drug therapy; M19.91 Primary osteoarthritis, unspecified site; R53.81 Other malaise; M81.0 Age-related osteoporosis without current pathological fracture; R53.1 Weakness; I87.2 Venous insufficiency (chronic) (peripheral); Z99.3 Dependence on wheelchair
CPT/HCPCS: 36415; 71046; 80048; 82565; 83880; 85014; 85018; 85025; 85049; Q0162